=== PATIENT | female | born 1950 | race Caucasian/White ===

== ENCOUNTER 2020-07-17 12:37 | Emergency (ER) | payer OTHER ==
--- OUTSIDE RECORDS SUMMARY | 2020-07-17 12:42 | XMS REPORT | Clinical Summary ---
:1950 Author Organization [facility] Address [address] [place] [address] Care Team Providers Name Role Phone Dayday Botello MD Primary Care Provider [phone] Allergies No Known Allergies Medications Medication Sig Dispensed Refills Start Date End Date Status acetaminophen-codeine Take 1 tablet by 0 Active (TYLENOL WITH CODEINE mouth every 4 #3) 300-30 mg per (four) hours as tablet needed for moderate pain. DOCUSATE CALCIUM ORAL Take by mouth. 0 Active Lactobacillus Take by mouth. 0 A ctive acidophilus (PROBIOTIC ORAL) cyanocobalamin, vitamin Take by mouth. 0 Active B-12, (VITAMIN B-12 ORAL) polyethylene glycol Take by mouth. 0 Active 3350 (MIRALAX ORAL) Active Problems Problem Noted Date Diverticulitis 06/30/2018 Family History Medical History Relation Name Comments Kidney disease Brother Heart disease Father Hypertension Father Breast cancer Maternal Grandfather Cancer Mother Heart disease Mother Hypertension Mother Kidney disease Sister Relation Name Status Comments Brother Father Maternal Grandfather Mother Sister Social History Tobacco Use Types Packs/Day Years Used Date Former Smoker Cigarettes 0.5 15 Quit: 1997 Smokeless Tobacco: Never Used Alcohol Use Drinks/Week oz/Week Comments No Sex Assigned at Date Recorded Not on file Job Start Date Occupation Industry Not on file Not on file Not on file Travel History Travel Start Travel End No recent travel history available. 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
[2020-07-17] MEDS ORDERED: ONDANSETRON 4 MG/2 ML VIAL ONE ×2 (13:43→15:54)
[2020-07-17] MEDS ORDERED: FENTANYL CITR 100 MCG/2 ML ONE ×2 (13:43→14:29)
[2020-07-17] MEDS ORDERED: propofoL 1,000 MG/100 ML VIAL IV ONE (13:53)
--- NOTE | 2020-07-17 14:28 | RAD REPORT ---
EXAM DESCRIPTION: RAD - Shoulder Left 2 View - 07/17/2020 2:03 pm CLINICAL HISTORY: Pain;Deformity COMPARISON: No comparisons TECHNIQUE: Internal and external rotation views of the left shoulder were obtained. FINDINGS: Left humeral head is dislocated anterior and medial to the glenoid. This is a typical ante rior dislocation position. Greater tuberosity fracture fragment is identifiable. No gross fracture de formity of the bony glenoid. AC joint is unremarkable. No suspicious soft tissue finding. IMPRESSION: Anterior left humeral head dislocation with greater tuberosity fracture fragment.
--- NOTE | 2020-07-17 15:39 | RAD REPORT ---
EXAM DESCRIPTION: RAD - Shoulder 1 View - 07/17/2020 2:47 pm CLINICAL HISTORY: post reduction COMPARISON: Shoulder Left 2 View dated 07/17/2020 FINDINGS: Left humeral head has been reduced to anatomic position. No further displacement or distra ction of the greater tuberosity fracture appear IMPRESSION: Successful reduction of anterior dislocation.
[2020-07-17] MEDS ORDERED: MORPHINE 4 MG/ML SYR ONE ×2 (15:54→18:24)
[2020-07-17] MEDS ORDERED: HYDROCODONE/APAP 10/325 TAB ONE (15:54)
--- NOTE | 2020-07-17 16:39 | RAD REPORT ---
EXAM DESCRIPTION: CT - Shoulder Left Wo Con - 07/17/2020 4:08 pm CLINICAL HISTORY: post reduction COMPARISON: Shoulder 1 View dated 07/17/2020; Shoulder Left 2 View dated 07/17/2020 TECHNIQUE: Axial 3 millimeter thick images of the left shoulder were obtained. Sagittal and coronal reformatted images were generated and reviewed. The CT scan was performed using dose optimization techniques as appropriate to a performed exam incl uding one or more of the following: Automated exposure control, adjustment of the mA and/or kV accord ing to patient size (this includes techniques or standardized protocols for targeted exams where dose is matched to indication/reason for exam) and use of iterative reconstruction technique. FINDINGS: Clavicle is intact. No AC joint abnormality. No abnormality of the upper ribcage. Patient is status post reduction of an anterior dislocation. Humeral head is in anatomic position. There is no Bankart lesion of the bony glenoid. Fracture of the greater tuberosity is present. There are several small fracture fragments in addition to the main ob lique fracture plane. There is no distraction or angulation deformity. Patient has a minimal [place] hs deformity to the posterior margin of the proximal humerus. No paraspinal hematoma or mass. No pathologic bone component seen. IMPRESSION: Approximately 2.5 centimeter size greater tuberosity fracture with no distraction or ang ulation deformity. Humeral head is in anatomic position. There is no Bankart lesion of the glenoid.
--- NOTE | 2020-07-17 16:43 | RAD REPORT ---
EXAM DESCRIPTION: CT - CTHCSPWOC - 07/17/2020 4:08 pm CLINICAL HISTORY: Fall, head and neck injury COMPARISON: No comparisons TECHNIQUE: Axial 5 mm thick images of the head were obtained. Axial 2 mm thick images of the cervic al spine were obtained with sagittal and coronal reconstruction images generated and reviewed. All CT scans are performed using dose optimization technique as appropriate and may include automated exposure control or mA/KV adjustment according to patient size. FINDINGS: No intracranial hemorrhage, mass, edema or acute intracranial finding. No suspicion for ac jason infarction. No extra-axial fluid collections. No mastoid air cell or paranasal sinus acute findin g. No globe or orbit abnormality seen. No significant atrophy or chronic ischemic change. Cervical bodies are normal in height. There is reversal of the usual cervical lordosis with the apex at C5-6. C5-6 and C6-7 disc spaces are narrowed. No other disc space narrowing. No fracture or acute bony abnormality. Facet joint degenerative changes are present. There is right bony foraminal encroac hment at C3-4 and C4-5. Mild left and moderate right bilateral foraminal encroachment changes at C5-6 . Central canal detail is inherently limited. No paraspinal mass or hematoma. IMPRESSION: Negative CT head examination for acute or significant finding. Negative CT cervical spine examination for fracture or acute finding. Cervical spondylosis changes primarily at C5-6 and C6-7. Central canal detail is inherently limited.
--- NOTE | 2020-07-17 17:03 | RAD REPORT ---
EXAM DESCRIPTION: RAD - Hand Right 2 View - 07/17/2020 4:18 pm CLINICAL HISTORY: PAIN COMPARISON: No comparisons FINDINGS: No fracture is identified. There is no dislocation or periosteal reaction noted. Radiocar pal joint space narrowing is present. Minimal degenerative change at the trapezial first metacarpal a rticulation. Slight joint space narrowing seen at the first and fourth MCP joints. There is joint spa ce narrowing throughout all of the IP joints. There is spurring and questionable erosive change along the ulnar side of the second PIP joint soft tissues are swollen in this region. There is soft tissue swelling in the proximal third and fourth digits as well. No air or foreign body in the soft tissues. IMPRESSION: No fracture or acute bone process identifiable. Degenerative changes are present throughout the IP joints of the hand. Gout cannot be excluded given the questionable erosive changes along the ulna side of the second proximal phalanx head.
[2020-07-17] MEDS ORDERED: NITROGLYCERIN 0.4 MG/TAB SL ONE (17:09)
--- NOTE | 2020-07-17 17:54 | EDPHYS ---
Physician Documentation [facility] Name: Charlotte Barrientos Age: 70 yrs Sex: Female : 1950 Arrival Date: 07/17/2020 Time: 12:40 Bed 14 Private MD: ED Physician Kaden Peralta HPI: 07/18 13:55 This 70 yrs old Female presents to ER via EMS with complaints of Fall Injury. kdr 13:55 Details of fall: The patient fell from an upright position. Onset: The symptoms/episode kdr began/occurred suddenly, just prior to arrival. Associated injuries: The patient sustained Left shoulder pain dislocation. Severity of symptoms: At their worst the symptoms were incapacitating, in the emergency department the symptoms are unchanged. The patient has not experienced similar symptoms in the past. The patient has not recently seen a physician. Historical: - Allergies: 07/17 12:45 No Known Allergies; iw - Home Meds: 12:45 gabapentin oral oral [Active]; iw - PMHx: 12:45 neuropathy; iw - Immunization history:: Adult Immunizations up to date. - Immunization history: Last tetanus immunization: < 10 years ago. - Social history:: Smoking status: Patient denies any tobacco usage or history of. ROS: 07/18 13:55 Constitutional: Negative for fever, chills, and weight loss, Eyes: Negative for injury, kdr pain, redness, and discharge, ENT: Negative for injury, pain, and discharge, Neck: Negative for injury, pain, and swelling, Cardiovascular: Negative for chest pain, palpitations, and edema, Respiratory: Negative for shortness of breath, cough, wheezing, and pleuritic chest pain, Abdomen/GI: Negative for abdominal pain, nausea, vomiting, diarrhea, and constipation, Back: Negative for injury and pain, : Negative for injury, bleeding, discharge, and swelling, Skin: Negative for injury, rash, and discoloration, Psych: Negative for depression, anxiety, suicide ideation, homicidal ideation, and hallucinations, Allergy/Immunology: Negative for hives, rash, and allergies, Endocrine: Negative for neck swelling, polydipsia, polyuria, polyphagia, and marked weight changes, Hematologic/Lymphatic: Negative for swollen nodes, abnormal bleeding, and unusual bruising. MS/extremity: Positive for injury or acute deformity, decreased range of motion, pain, of the left arm. Neuro: Positive for numbness, weakness, of the left antecubital area, dorsal aspect of left forearm, left wrist, left hand, left elbow and palmar aspect of left forearm, The patient had no sensation or movement of the left upper extremity below the mid humerous. Exam: 07:44 ECG was reviewed by the Attending Physician. kdr 13:55 Constitutional: This is a well developed, well nourished patient who is awake, alert, kdr and in no acute distress. Head/Face: Normocephalic, atraumatic. Eyes: Pupils equal round and reactive to light, extra-ocular motions intact. Lids and lashes normal. Conjunctiva and sclera are non-icteric and not injected. Cornea within normal limits. Periorbital areas with no swelling, redness, or edema. Neck: Trachea midline, no thyromegaly or masses palpated, and no cervical lymphadenopathy. Supple, full range of motion without nuchal rigidity, or vertebral point tenderness. No Meningismus. Chest/axilla: Normal chest wall appearance and motion. Nontender with no deformity. No lesions are appreciated. Cardiovascular: Regular rate and rhythm with a normal S1 and S2. No gallops, murmurs, or rubs. Normal PMI, no JVD. No pulse deficits. Respiratory: Lungs have equal breath sounds bilaterally, clear to auscultation and percussion. No rales, rhonchi or wheezes noted. No increased work of breathing, no retractions or nasal flaring. Abdomen/GI: Soft, non-tender, with normal bowel sounds. No distension or tympany. No guarding or rebound. No evidence of tenderness throughout. Back: No spinal tenderness. No costovertebral tenderness. Full range of motion. Skin: Warm, dry with normal turgor. Normal color with no rashes, no lesions, and no evidence of cellulitis. Psych: Awake, alert, with orientation to person, place and time. Behavior, mood, and affect are within normal limits. 13:55 Neuro: Orientation: Motor: Strength is 1/5 in the left antecubital area, dorsal aspect of left forearm, left wrist, left hand, left elbow and palmar aspect of left forearm, Sensation: numbness, that is severe, of the left antecubital area, dorsal aspect of left forearm, left wrist, left hand, left elbow and palmar aspect of left forearm. Vital Signs: 07/17 12:44 BP 192 / 75; Pulse 90; Resp 16; Temp 98.1; Pulse Ox 100% on R/A; iw 13:30 BP 88 / 80; Pulse 85; Resp 19; Pulse Ox 96% on R/A; Pain 9/10; hb 14:30 BP 194 / 77; Pulse 86; Resp 20; Pulse Ox 99% on 2 lpm NC; hb 15:30 BP 128 / 78; Pulse 80; Resp 15; Pulse Ox 97% on 2 lpm NC; Pain 8/10; hb 16:30 BP 128 / 78; Pulse 82; Resp 15; Pulse Ox 97% on 2 lpm NC; Pain 6/10; hb 17:30 BP 136 / 75; Pulse 79; Resp 16; Pulse Ox 98% on R/A; Pain 8/10; hb 18:30 BP 132 / 72; Pulse 75; Resp 16; Pulse Ox 99% on R/A; hb 19:45 BP 157 / 65; Pulse 88; Resp 18; Pulse Ox 98% on R/A; wh 21:00 BP 156 / 69; Pulse 90; Resp 18; Pulse Ox 95% on R/A; Pain 3/10; wh [place] Coma Score: 12:45 Eye Response: spontaneous(4). Verbal Response: oriented(5). Motor Response: obeys iw commands(6). Total: 15. Trauma Score (Adult): 12:47 Eye Response: spontaneous(1); Verbal Response: oriented(1); Motor Response: obeys iw commands(2); Systolic BP: > 89 mm Hg(4); Respiratory Rate: 10 to 29 per min(4); [place] Score: 15; Trauma Score: 12 13:30 Eye Response: spontaneous(1); Verbal Response: oriented(1); Motor Response: obeys hb commands(2); Systolic BP: > 89 mm Hg(4); Respiratory Rate: 10 to 29 per min(4); [place] Score: 15; Trauma Score: 12 14:30 Eye Response: to pain(0); Verbal Response: inappropriate words(0); Motor Response: hb withdraws from pain(1); Systolic BP: > 89 mm Hg(4); Respiratory Rate: 10 to 29 per min(4); [place] Score: 9; Trauma Score: 9 15:30 Eye Response: spontaneous(1); Verbal Response: oriented(1); Motor Response: obeys hb commands(2); Systolic BP: > 89 mm Hg(4); Respiratory Rate: 10 to 29 per min(4); [place] Score: 15; Trauma Score: 12 16:30 Eye Response: spontaneous(1); Verbal Response: oriented(1); Motor Response: obeys hb commands(2); Systolic BP: > 89 mm Hg(4); Respiratory Rate: 10 to 29 per min(4); [place] Score: 15; Trauma Score: 12 17:30 Eye Response: spontaneous(1); Verbal Response: oriented(1); Motor Response: obeys hb commands(2); Systolic BP: > 89 mm Hg(4); Respiratory Rate: 10 to 29 per min(4); [place] Score: 15; Trauma Score: 12 18:30 Eye Response: spontaneous(1); Verbal Response: oriented(1); Motor Response: obeys hb commands(2); Systolic BP: > 89 mm Hg(4); Respiratory Rate: 10 to 29 per min(4); [place] Score: 15; Trauma Score: 12 Procedures: 07/18 15:13 Reduction: of the left shoulder, using traction, manipulation, Immobilized with sling, kdr Patient tolerated well. Post reduction film - reveals normal alignment. Moderate sedation: Pre-procedure assessment: the patient has been NPO 4 hour(s) prior to arrival, Monitoring during procedure: campus monitor, continuous pulse oximetry, nurse at bedside at all times, Medications employed: Brevital, 250 mg(s), Fentanyl, Post-procedure assessment: the patient is not sedated, Respiratory status: even and unlabored, a reversal agent was not used. MDM: 07/17 17:53 Patient medically screened. kdr 07/18 13:55 Data reviewed: vital signs, nurses notes, lab test result(s), radiologic studies. kdr Counseling: I had a detailed discussion with the patient and/or guardian regarding: the historical points, exam findings, and any diagnostic results supporting the discharge/admit diagnosis, lab results, radiology results, the need to transfer to another facility. Physician consultation: Adriano Daniel MD and will see patient in office, States nothing to be done about neuro deficit at this time. Would need to see neurology in follow-up. next week. Physician consultation: Jose Shane MD after a discussion of the case, a recommendation for transfer for higher level of care is made, discharges patient from the emergency department, After further discussion with Dr. Daniel regarding the neuro deficit, he felt that a stat neuro consult would be advisable in the ED to determine current state of deficit and need for follow-up. I then contacted Dr. Shane who suggested that the differential diagnosis at this time was cervical root disruption versus radial plexus injury. HE felt that emergent MRI would be advisable. MRI was not then available at this facility and so initiated a trasnport. 07/17 13:05 Order name: Shoulder Left (2 View) XRAY; Complete Time: 17:35 iw 07/17 14:45 Order name: Shoulder 1 View; Complete Time: 17:35 EDMS 07/17 15:09 Order name: Shoulder Left Wo Con; Complete Time: 17:35 EDMS 07/17 16:00 Order name: Head C Spine Mpr Wo Con; Complete Time: 17:35 EDMS 07/17 16:09 Order name: Hand Right 2 View; Complete Time: 17:35 EDMS EC:44 Rate is 87 beats/min. Rhythm is regular, Normal Sinus Rhythm with No ectopy. QRS [place] kdr is Normal. IN interval is normal. QRS interval is normal. QT interval is normal. Clinical impression: NSR w/ Non-specific ST/T Changes. Administered Medications: 07/17 13:35 Drug: fentaNYL (PF) 50 mcg Route: IVP; Site: right hand; hb 14:00 Follow up: Response: No adverse reaction hb 13:36 Drug: Zofran (Ondansetron) 4 mg Route: IVP; Site: right wrist; hb 14:00 Follow up: Response: No adverse reaction hb 14:00 Drug: Propofol 100 mg {Note: Administered by Dr. Peralta.} Route: IVP; Site: right hand;hb 14:40 Follow up: Response: No adverse reaction hb 14:05 Drug: Propofol 20 mg {Note: Administered by Dr. Peralta.} Route: IVP; Site: right hand; hb 14:09 Drug: Propofol 20 mg {Note: Administered by Dr. Peralta.} Route: IVP; Site: right hand; hb 14:12 Drug: Propofol 20 mg {Note: Administered by Dr. Peralta.} Route: IVP; Site: right hand; hb 14:40 Follow up: Response: No adverse reaction hb 14:17 Drug: Propofol 30 mg {Note: Administered by Dr. Peralta.} Route: IVP; Site: right hand; hb 14:40 Follow up: Response: No adverse reaction hb 14:19 Drug: fentaNYL (PF) 50 mcg Route: IVP; Site: right hand; hb 14:40 Follow up: Response: No adverse reaction hb 14:22 Drug: Propofol 25 mg Route: IVP; Site: right hand; hb 14:40 Follow up: Response: No adverse reaction hb 15:54 Drug: Concepcion 10 mg-325 mg 1 tabs Route: PO; hb 21:09 Follow up: Response: No adverse reaction; RASS: Alert and Calm (0) 15:54 Drug: morphine 4 mg Route: IVP; Site: right hand; hb 21:09 Follow up: Response: No adverse reaction; RASS: Alert and Calm (0) 18:24 Drug: Concepcion (7.5 mg-325 mg) 1 tabs Route: PO; hb 21:08 Follow up: Response: No adverse reaction; Pain is decreased; RASS: Alert and Calm (0) 18:24 Drug: morphine 4 mg Route: IVP; Site: right hand; hb 21:08 Follow up: Response: No adverse reaction; Pain is decreased; RASS: Alert and Calm (0) Disposition: 07/17/20 20:[address] [facility]. Diagnosis are Neuropraxia- left arm, Brachial plexus disorders - s/p dislocation and reduction of anterior dislocation. - Reason for transfer: Higher level of care. - Accepting physician is Dr. Coleman. - Condition is Stable. - Problem is an acute exacerbation. - Symptoms are unchanged. Signatures: Dispatcher [employer] EDMS Kaden Peralta MD MD kdr Waters, Shelly, FNP-C MANAGER LABOR DELIVERY-Jenna Mendoza RN RN Thais Parr RN RN Nell Remy Corrections: (The following items were deleted from the chart) 14:45 14:34 Shoulder Left 2 View+RAD.RAD.BRZ ordered. EDMS EDMS 15:59 15:26 Soft Tissue Neck Wo Contr ordered. [facility] EDID 15:59 15:43 Hand Right Wo Con ordered. [facility] 16:00 15:26 Head C Spine Cap Wo Con ordered. [facility] 17:54 17:53 07/17/2020 17:53 Discharged to Home. Impression: Neuropraxia - Left arm. kdr Condition is Stable. Forms are Medication Reconciliation Form, Thank You Letter, Antibiotic Education, Prescription Opioid Use. Follow up: Private Physician; When: 2 - 3 days; Reason: If symptoms return, Further diagnostic work-up, Recheck today's complaints, Continuance of care, Re-evaluation by your physician. Problem is new. Symptoms have improved. kdr 20:30 17:54 07/17/2020 17:53 Discharged to Home. Impression: Neuropraxia - Left arm; Other snw dislocation of left shoulder joint; Nondisplaced fracture of greater tuberosity of left humerus; Sprain of unspecified part of right wrist and hand; Superficial injury of head. Condition is Stable. Forms are Medication Reconciliation Form, Thank You Letter, Antibiotic Education, Prescription Opioid Use. Follow up: Private Physician; When: 2 - 3 days; Reason: If symptoms return, Further diagnostic work-up, Recheck today's complaints, Continuance of care, Re-evaluation by your physician. Problem is new. Symptoms have improved. kdr 21:34 20:31 07/17/2020 20:[address] [facility]. wh Diagnosis is Neuropraxia- left arm; Brachial plexus disorders - s/p dislocation and reduction of anterior dislocation. Reason for transfer: Higher level of care. Accepting physician is Dr. Coleman. Condition is Stable. Problem is an acute exacerbation. Symptoms are unchanged. snw
--- NOTE | 2020-07-17 17:54 | ER ---
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 IV pain meds , fluids on board, pt A\T\OX3, EMS reports [address] depression, gave 324 ASA. Care prior to arrival: IV initiated. 20 GA, in the right wrist. 12:41 Acuity: SHIRA 3 iw 12:41 Method Of Arrival: EMS: [facility] iw 12:44 Mechanism of Injury: Fall from standing position. Trauma event details: Injury occurred iw in the [facility], Injury occurred: in a public building. Injury occurred: July 17, 2020. 12:46 Coronavirus screen: At this time, the client does not indicate any symptoms associated iw with coronavirus-19. Ebola Screen: Patient negative for fever greater than or equal to 101.5 degrees Fahrenheit, and additional compatible Ebola Virus Disease symptoms Patient denies exposure to infectious person. Patient denies travel to an Ebola-affected area in the 21 days before illness onset. No symptoms or risks identified at this time. Initial Sepsis Screen: Does the patient meet any 2 criteria? No. Patient's initial sepsis screen is negative. Does the patient have a suspected source of infection? No. Patient's initial sepsis screen is negative. Risk Assessment: Do you want to hurt yourself or someone else? Patient reports no desire to harm self or others. Onset of symptoms was July 17, 2020. Care prior to arrival: Medication(s) given: ASA, 81 mg, x 4, zofran 4 mg, fentanyl 75 mcg. Trauma Activation: Not Applicable Physician: ED Physician; Name: ; Notified At: ; Arrived At: Physician: General Surgeon; Name: ; Notified At: ; Arrived At: Physician: Radiology; Name: ; Notified At: ; Arrived At: Physician: Respiratory; Name: ; Notified At: ; Arrived At: Physician: Lab; Name: ; Notified At: ; Arrived At: Historical: - Allergies: 12:45 No Known Allergies; iw - Home Meds: 12:45 gabapentin oral oral [Active]; iw - PMHx: 12:45 neuropathy; iw - Immunization history:: Adult Immunizations up to date. - Immunization history: Last tetanus immunization: < 10 years ago. - Social history:: Smoking status: Patient denies any tobacco usage or history of. Screenin:47 Abuse screen: Denies threats or abuse. Denies injuries from another. Tuberculosis iw screening: No symptoms or risk factors identified. 13:05 Nutritional screening: No deficits noted. Fall Risk Total Rodríguez Fall Scale indicates hb High Risk Score (45 or more points). Fall prevention measures have been instituted. Side Rails Up X 2 Frequent Obs/Assessments Occuring As available patient and family educated on Fall Prevention Program and Strategies. Primary Survey: 12:46 NO uncontrolled hemorrhage observed. A: The patient is alert. Airway: patent. iw Breathing/Chest: Respiratory pattern: regular, Respiratory effort: spontaneous. Circulation: Pulses: palpable right radial artery and left radial artery. Disability Alert. Exposure/Environment: All clothing and personal items were removed. Forensic evidence collection is not deemed to be indicated at this time. Items placed in patient belonging bag. 13:30 Reassessment Airway Airway Patent Oxygen No O2 Breathing/Chest Respiratory pattern hb Regular Breath sounds Clear Chest inspection Symmetrical Asymmetrical Circulation Pulses Palpable Color [place] Temperature Warm Dry Disability Alert. 14:30 Reassessment Airway Airway Patent Oxygen Nasal cannula Breathing/Chest Respiratory hb pattern Regular Breath sounds Clear Chest inspection Symmetrical Asymmetrical Circulation Pulses Palpable Color [place] Temperature Warm Dry Disability Alert. 15:30 Reassessment Airway Airway Patent Oxygen Nasal cannula Breathing/Chest Respiratory hb pattern Regular Chest inspection Symmetrical Asymmetrical Circulation Pulses Palpable Color [place] Temperature Warm Dry Disability Alert. 16:30 Reassessment Airway Airway Patent Oxygen Nasal cannula Breathing/Chest Respiratory hb pattern Regular Chest inspection Symmetrical Asymmetrical Circulation Pulses Palpable Color [place] Temperature Warm Dry Disability Alert. 17:30 Reassessment Airway Airway Patent Oxygen No O2 Breathing/Chest Respiratory pattern hb Regular Breath sounds Clear Chest inspection Symmetrical Asymmetrical Circulation Color [place] Temperature Warm Dry Disability Alert. 18:30 Reassessment Airway Airway Patent Oxygen No O2 Breathing/Chest Respiratory pattern hb Regular Respiratory effort Spontaneous Chest inspection Symmetrical Asymmetrical Circulation Pulses Palpable Color [place] Temperature Warm Dry Disability Alert. Secondary Survey: 14:30 HEENT: Eyes: Other left upper eyelid swelling and bruising noted. hb 14:30 Gastrointestinal: No deficits noted. : No signs and/or symptoms were reported hb regarding the genitourinary system. Musculoskeletal: Range of motion: limited in left shoulder, bruising noted to right ring finger. Assessment: 13:00 General: Appears in no apparent distress. uncomfortable, Behavior is cooperative. Pain: hb Pain currently is 9 out of 10 on a pain scale. Neuro: Level of Consciousness is awake, alert, obeys commands, Oriented to person, place, time, situation. EENT: No signs and/or symptoms were reported regarding the EENT system. Cardiovascular: Capillary refill < 3 seconds Patient's skin is warm and dry. Pulses are 3+ in left radial artery. Respiratory: Airway is patent Respiratory effort is even, unlabored, Respiratory pattern is regular, symmetrical, Breath sounds are clear bilaterally. GI: No signs and/or symptoms were reported involving the gastrointestinal system. : No signs and/or symptoms were reported regarding the genitourinary system. Derm: Skin is pink, warm \T\ dry. Musculoskeletal: Reports limited ROM in left shoulder, pain in left shoulder that radiates to left elbow, mild bruising and moderate swelling noted to left upper eyelid, bruising noted to bryant aspect of right ring finger. 13:12 Reassessment: Brother in Law Shayne Barrientos [phone]. hb 13:30 Reassessment: Patient appears in no apparent distress at this time. Patient and/or hb family updated on plan of care and expected duration. Pain level reassessed. Patient is alert, oriented x 3, equal unlabored respirations, skin warm/dry/pink. 14:00 Reassessment: Dr Peralta at bedside for conscious sedation, see paper chart for conscious sedation flow sheet. 15:00 Reassessment: Patient appears in no apparent distress at this time. Patient and/or hb family updated on plan of care and expected duration. Pain level reassessed. Patient is alert, oriented x 3, equal unlabored respirations, skin warm/dry/pink. 15:30 Reassessment: Patient appears in no apparent distress at this time. Patient and/or hb family updated on plan of care and expected duration. Pain level reassessed. Patient is alert, oriented x 3, equal unlabored respirations, skin warm/dry/pink. 15:54 Reassessment: Pt to CT via stretcher. hb 16:29 Reassessment: Pt returned from CT. hb 16:30 Reassessment: Patient appears in no apparent distress at this time. Patient and/or hb family updated on plan of care and expected duration. Pain level reassessed. Patient is alert, oriented x 3, equal unlabored respirations, skin warm/dry/pink. 17:30 Reassessment: Patient appears in no apparent distress at this time. Patient and/or hb family updated on plan of care and expected duration. Pain level reassessed. Patient is alert, oriented x 3, equal unlabored respirations, skin warm/dry/pink. 18:30 Reassessment: Dr. Peralta at bedside to discuss possible transfer to higher level of hb care. NAD. VSS. 19:15 General: Appears in no apparent distress. uncomfortable, Behavior is calm, cooperative, wh appropriate for age. Neuro: Level of Consciousness is awake, alert, obeys commands, Oriented to person, place, time, situation, Appropriate for age Reports numbness in left forearm Pt states unable to move left forearm. Cardiovascular: Capillary refill < 3 seconds Patient's skin is warm and dry. Pulses are all present. Respiratory: Airway is patent Respiratory effort is even, unlabored, Respiratory pattern is regular, symmetrical. GI: No signs and/or symptoms were reported involving the gastrointestinal system. : No signs and/or symptoms were reported regarding the genitourinary system. EENT: No signs and/or symptoms were reported regarding the EENT system. Derm: Skin is intact, is healthy with good turgor, Skin is pink, warm \T\ dry. normal. Musculoskeletal: Range of motion: limited in left forearm Reports. 19:23 Reassessment: Purse, wallet, and flip flops sent home with Wedding ring placed hb in inside pocket of wallet by patient. Belongings walked out to . 19:45 Reassessment: Pt already for discharge, MD at bedside plan now to transfer to [facility] for higher level of care. 20:45 Reassessment: Patient and/or family updated on plan of care and expected duration. Pain wh level reassessed. Patient is alert, oriented x 3, equal unlabored respirations, skin warm/dry/pink. Report given to Julia Pavon RN. Vital Signs: 12:44 BP 192 / 75; Pulse 90; Resp 16; Temp 98.1; Pulse Ox 100% on R/A; iw 13:30 BP 88 / 80; Pulse 85; Resp 19; Pulse Ox 96% on R/A; Pain 9/10; hb 14:30 BP 194 / 77; Pulse 86; Resp 20; Pulse Ox 99% on 2 lpm NC; hb 15:30 BP 128 / 78; Pulse 80; Resp 15; Pulse Ox 97% on 2 lpm NC; Pain 8/10; hb 16:30 BP 128 / 78; Pulse 82; Resp 15; Pulse Ox 97% on 2 lpm NC; Pain 6/10; hb 17:30 BP 136 / 75; Pulse 79; Resp 16; Pulse Ox 98% on R/A; Pain 8/10; hb 18:30 BP 132 / 72; Pulse 75; Resp 16; Pulse Ox 99% on R/A; hb 19:45 BP 157 / 65; Pulse 88; Resp 18; Pulse Ox 98% on R/A; wh 21:00 BP 156 / 69; Pulse 90; Resp 18; Pulse Ox 95% on R/A; Pain 3/10; wh Jeanette Coma Score: 12:45 Eye Response: spontaneous(4). Verbal Response: oriented(5). Motor Response: obeys iw commands(6). Total: 15. Trauma Score (Adult): 12:47 Eye Response: spontaneous(1); Verbal Response: oriented(1); Motor Response: obeys iw commands(2); Systolic BP: > 89 mm Hg(4); Respiratory Rate: 10 to 29 per min(4); Jeanette Score: 15; Trauma Score: 12 13:30 Eye Response: spontaneous(1); Verbal Response: oriented(1); Motor Response: obeys hb commands(2); Systolic BP: > 89 mm Hg(4); Respiratory Rate: 10 to 29 per min(4); Jeanette Score: 15; Trauma Score: 12 14:30 Eye Response: to pain(0); Verbal Response: inappropriate words(0); Motor Response: hb withdraws from pain(1); Systolic BP: > 89 mm Hg(4); Respiratory Rate: 10 to 29 per min(4); Jeanette Score: 9; Trauma Score: 9 15:30 Eye Response: spontaneous(1); Verbal Response: oriented(1); Motor Response: obeys hb commands(2); Systolic BP: > 89 mm Hg(4); Respiratory Rate: 10 to 29 per min(4); Jeanette Score: 15; Trauma Score: 12 16:30 Eye Response: spontaneous(1); Verbal Response: oriented(1); Motor Response: obeys hb commands(2); Systolic BP: > 89 mm Hg(4); Respiratory Rate: 10 to 29 per min(4); Jeanette Score: 15; Trauma Score: 12 17:30 Eye Response: spontaneous(1); Verbal Response: oriented(1); Motor Response: obeys hb commands(2); Systolic BP: > 89 mm Hg(4); Respiratory Rate: 10 to 29 per min(4); K[place]al Score: 15; Trauma Score: 12 18:30 Eye Response: spontaneous(1); Verbal Response: oriented(1); Motor Response: obeys hb commands(2); Systolic BP: > 89 mm Hg(4); Respiratory Rate: 10 to 29 per min(4); Kensal Score: 15; Trauma Score: 12 ED Course: 12:40 Patient arrived in ED. iw 12:43 Triage completed. iw 12:46 Arm band placed on. iw 12:47 Patient has correct armband on for positive identification. Bed in low position. iw 12:47 Maintain EMS IV. Dressing intact. Good blood return noted. Site clean \T\ dry. Gauge \T\ iw site: 20 right wrist. 13:08 Thais Parr RN is Primary Nurse. hb 13:14 Kaden Peralta MD is Attending Physician. kdr 13:40 Shoulder Left (2 View) XRAY In Process Unspecified. EDMS 13:50 Consent for conscious sedation explained by staff, signed by patient. iw 14:48 Shoulder 1 View In Process Unspecified. EDMS 16:08 Shoulder Left Wo Con In Process Unspecified. EDMS 16:08 Head C Spine Mpr Wo Con In Process Unspecified. EDMS 16:18 Hand Right 2 View In Process Unspecified. EDMS 16:38 Oxygen administration via nasal cannula \T\ 2L/min. Thermoregulation: warm blanket given hb to patient. 18:45 Gibson Escalante initiated a transfer with Laura Ramirez RN from [facility]. mw2 19:[address] Coleman the hospitalist radiation protection technician for [facility] with Dr. Peralta mw2 for patient transfer consultation. 19:25 administrative approval given by Laura Ramirez RN/ patient has been accepted to [facility] mw2 [facility] bed 1614/ Dr. Coleman has accepted the patient in transfer/ report to be called to [phone]. 21:00 IV discontinued, intact, bleeding controlled, No redness/swelling at site. Iv wh infiltrated. 21:29 No provider procedures requiring assistance completed. wh Administered Medications: 13:35 Drug: fentaNYL (PF) 50 mcg Route: IVP; Site: right hand; hb 14:00 Follow up: Response: No adverse reaction hb 13:36 Drug: Zofran (Ondansetron) 4 mg Route: IVP; Site: right wrist; hb 14:00 Follow up: Response: No adverse reaction hb 14:00 Drug: Propofol 100 mg {Note: Administered by Dr. Peralta.} Route: IVP; Site: right hand;hb 14:40 Follow up: Response: No adverse reaction hb 14:05 Drug: Propofol 20 mg {Note: Administered by Dr. Peralta.} Route: IVP; Site: right hand; hb 14:09 Drug: Propofol 20 mg {Note: Administered by Dr. Peralta.} Route: IVP; Site: right hand; hb 14:12 Drug: Propofol 20 mg {Note: Administered by Dr. Peralta.} Route: IVP; Site: right hand; hb 14:40 Follow up: Response: No adverse reaction hb 14:17 Drug: Propofol 30 mg {Note: Administered by Dr. Peralta.} Route: IVP; Site: right hand; hb 14:40 Follow up: Response: No adverse reaction hb 14:19 Drug: fentaNYL (PF) 50 mcg Route: IVP; Site: right hand; hb 14:40 Follow up: Response: No adverse reaction hb 14:22 Drug: Propofol 25 mg Route: IVP; Site: right hand; hb 14:40 Follow up: Response: No adverse reaction hb 15:54 Drug: [place] 10 mg-325 mg 1 tabs Route: PO; hb 21:09 Follow up: Response: No adverse reaction; RASS: Alert and Calm (0) 15:54 Drug: morphine 4 mg Route: IVP; Site: right hand; hb 21:09 Follow up: Response: No adverse reaction; RASS: Alert and Calm (0) 18:24 Drug: [place] (7.5 mg-325 mg) 1 tabs Route: PO; hb 21:08 Follow up: Response: No adverse reaction; Pain is decreased; RASS: Alert and Calm (0) 18:24 Drug: morphine 4 mg Route: IVP; Site: right hand; hb 21:08 Follow up: Response: No adverse reaction; Pain is decreased; RASS: Alert and Calm (0) Intake: 16:30 PO: 0ml; Total: 0ml. hb Outcome: 17:53 Discharge ordered by . kdr 20:31 ER care complete, transfer ordered by MD. snw 21:33 Transferred by ground EMS Transfer form completed. X-rays sent w/ patient. Note: Report given to [facility] 21:33 Condition: stable 21:33 Instructed on the need for transfer. 21:33 Patient's length of stay in the Emergency Department was greater than 2 hours. Pt wh transferred for higher level of carePatient's length of stay extended due to 21:34 Patient left the ED. Signatures: Dispatcher [employer] EDMS Kaden Peralta MD MD kdr Waters, Shelly, FREEZER PERSON-C FREEZER PERSON-Csnw Jenna Hodgson, RIK JOLLY Thais Parr RN RN [facility] Corrections: (The following items were deleted from the chart) 21:08 21:00 BP 156 / 69; Pulse 90bpm; Resp 18bpm; Pulse Ox 93% RA; [facility]
[2020-07-17] MEDS ORDERED: HYDROCODONE/APAP 7.5/325 MG TAB ONE (18:23)
[2020-07-17 22:40] VITALS: TEMP 98.1
[2020-07-17 22:50] VITALS: BP 156/69; O2SAT 95
== END 2020-07-17 21:34 | disposition short-term general hospital (02) ==
LOC: ER 12:37
PROC: 0RSKXZZ Reposition Left Shoulder Joint, External Approach (ICD-10-PCS; principal; 2020-07-17)
DX: S43.005A Unspecified dislocation of left shoulder joint, initial encounter (principal); S44.92XA Injury of unspecified nerve at shoulder and upper arm level, left arm, initial encounter; G54.0 Brachial plexus disorders; W19.XXXA Unspecified fall, initial encounter; Y93.9 Activity, unspecified; Y92.9 Unspecified place or not applicable
CPT/HCPCS: 93005; 70450; 72125; 73200; 73020; 73120; 73030; 99285; 23655; J2704; J3010 ×2; J2405 ×2

== ENCOUNTER 2022-11-22 11:37 | Emergency (ER) | payer OTHER ==
--- OUTSIDE RECORDS SUMMARY | 2022-11-22 11:47 | XMS REPORT | Continuity of Care Document ---
:1950 Author Organization [facility] t Address [address] [place] [address] Care Team Providers Name Role Phone Dayday Botello MD Primary Care Physician [phone] LÁZARO CHAPMAN Attending Clinician Unavailable Matthew Trotter MD Attending Clinician MATTHEW TROTTER Attending Clinician Unavailable Stephan HUERTA, Nazario Jennings Attending Clinician López Mosqueda MD Attending Clinician LÁZARO CHAPMAN Admitting Clinician Unavailable Payers Payer Name Policy Type Policy Number Effective Date Expiration Date S hugo [employer]ET[employer] MEDICARE HMO [id number] 2019 POS PPO 00:00:00 CDC REVIEW [id number] 2020 00:00:00 Problems Condition Condition Condition Status Onset Resolution Last Treating Co mments Source Name Details Category Date Date Treatment Clinician Date Left arm [facility] [place] Left arm Left arm Disease [facility] [place] Greater Greater Disease Active [facility] tuberosity tuberosity 9-17 [facility] of [facility] hum[facility] 00:00: Me dical fracture fracture 00 Center Diverticul Diverticul Disease Active [facility] 00 l Allergies, Adverse Reactions, Alerts Allergy Allergy Status Severity Reaction(s) Onset Inactive Treating Comm ents Source Name Type Date Date Clinician NO KNOWN Allergy Active [facility] Family History Family Member Diagnosis Comments Start Date Stop Date Source Natural brother Kidney disease [facility] Natural father Heart disease [facility] Natural father Hypertension [facility] Maternal grandfather Breast cancer [facility] Natural mother Cancer [facility] Natural mother Heart disease [facility] mother Hypertension [facility] Natural sister Kidney disease [facility] Social History Social Habit Start Date Stop Date Quantity Comments Source Exposure to Not sure [facility] of SARS-CoV-2 (event) Medici ne History of tobacco Smoker [facility] of use Medicine Tobacco Comment 2020-09-03 2020-09-[address] [facility] llege of 00:00:00 00:00:00 smoking at the Medicine age of 19. I stopped smoking for 4 years. I started smoking again then quit Tobacco use and 2020-07-18 2020-07-[address] [facility] kes exposure 00:00:00 00:00:00 [facility] Alcohol intake 2018-08-01 2018-08-01 Current [facility] 00:00:00 00:00:00 non-drinker of Hospital alcohol (finding) Cigarettes smoked 2018-06-15 2018-06-15 [facility] current (pack per 00:00:00 00:00:00 Hospita l day) - Reported Cigarette 2018-06-15 2018-06-15 [facility] pack-years 00:00:00 00:00:00 Hospital Sex Ass[birth year] At [birth year] [facility] 00:00[facility] 00:[facility]:00 Hospital Smoking Status Start Date Stop Date Source Ex-smoker 2020-08-27 00:00:00 2020-08-27 00:00:00 [facility] Medications Ordered Filled Start Stop Current Ordering Indication Dosage Frequency Signature Comments Components Source Medication Medication Date Date Medication? Clinician (SIG) Name Name Polyethylen Yes Take by [facility] e Glycol 2-02 mouth. [place] POWD 10:33: of 14 Medicin e Polyethylen 2020-1 Yes Take by [facility] l[facility] e Glycol 0-27 mouth. [place] POWD 10:31: of 58 Medicin e duloxetine 2020-10 Yes Mode (CYMBALTA) 0-18 College 30 MG 00:00: of capsule 00 Medicin e duloxetine 2020-1 Yes [facility] (CYMBALTA) 0-18 College 30 MG 00:00: of capsule 00 Medicin e Polyethylen 2020-0 Yes Take by [facility] l[facility] e Glycol 9-23 mouth. [place] POWD 09:49: of 25 Medicin e Polyethylen 2020-0 Yes Take by [facility] l[facility] e Glycol 9-23 mouth. [place] POWD 09:49: of 25 Medicin e hydrochloro 2020-0 2020- No TAKE 1 [facility] thiazide 8-24 -23 TABLET BY Oz cabrera (HYDRODIURI 00:00: 00:00 MOUTH IN o f L) 25 MG 00 :00 THE Medicin tablet MORNING e hydrochloro 1-0 2020- No TAKE 1 [facility] thiazide 8-24 -23 TABLET BY Oz cabrera (HYDRODIURI 00:00: 00:00 MOUTH IN o f L) 25 MG 00 :00 THE Medicin tablet MORNING e Polyethylen 2020-0 Yes Take by [facility] l[facility] e Glycol 7-15 mouth. [place] POWD 08:57: of 53 Medicin e DULoxetine 2020-0 Yes Mode HCl 30 MG 5-27 [place] CSDR 00:00: of 00 Medicin e DULoxetine 2020-0 Yes Mode HCl 30 MG 5-27 [place] CSDR 00:00: of 00 Medicin e DULoxetine 2020-0 Yes Mode HCl 30 MG 5-27 [place] CSDR 00:00: of 00 Medicin e DULoxetine 2020-0 Yes Mode HCl 30 MG 5-27 [place] CSDR 00:00: of 00 Medicin e DULoxetine 2020-0 Yes [facility] HCl 30 MG 5-27 [place] CSDR 00:00: of 00 Medicin e meloxicam 2020-0 Yes Mode (MOBIC) 15 5-25 College MG tablet 00:00: of 00 Medicin e meloxicam 2020-0 Yes [facility] (MOBIC) 15 5-25 College MG tablet 00:00: of 00 Medicin e meloxicam 0 Yes Mode (MOBIC) 15 5-25 College MG tablet 00:00: of 00 Medicin e meloxicam 2020-0 2020- No [facility] (MOBIC) 15 5-25 10-27 College MG tablet 00:00: 00:00 of 00 :00 Medicin e Polyethylen 0 Yes Take by [facility] luna e Glycol 4-07 mouth. [place] POWD 15:14: of 30 Medicin e Rosuvastati 0 2020- No Take by Manish minayaor n Calcium 4-07 04-07 mouth. 1 Colle ge 40 MG CPSP 15:13: 00:00 Daily of 42 :00 Medicin e hydrochloro 0 2020- No 12.5mg Take 12.5 [facility] thiazide 4-07 04-07 mg by [place] (MICROZIDE) 15:13: 00:00 mouth of 12.5 MG 42 :00 daily. Medicin capsule e amlodipine 0 Yes TAKE 1/2 [facility] l[facility] (NORVASC) 3-21 TABLET BY Colle ge 10 MG 00:00: MOUTH of tablet 00 DAILY 60 Medicin e amlodipine 0 Yes TAKE 1/2 [facility] (NORVASC) 3-21 TABLET BY Colle ge 10 MG 00:00: MOUTH of tablet 00 DAILY 60 Medicin e amlodipine 2020-0 Yes TAKE 1/2 [facility] (NORVASC) 3-21 TABLET BY Colle ge 10 MG 00:00: MOUTH of tablet 00 DAILY 60 Medicin e amlodipine 2020-0 Yes TAKE 1/2 [facility] (NORVASC) 3-21 TABLET BY Colle ge 10 MG 00:00: MOUTH of tablet 00 DAILY 60 Medicin e amlodipine 2020-0 Yes TAKE 1/2 [facility] (NORVASC) 3-21 TABLET BY Colle ge 10 MG 00:00: MOUTH of tablet 00 DAILY 60 Medicin e amlodipine 2020-0 Yes TAKE 1/2 [facility] (NORVASC) 3-21 TABLET BY Colle ge 10 MG 00:00: MOUTH of tablet 00 DAILY 60 Medicin e Polyethylen 0 Yes Take by [facility] e Glycol 2-24 mouth. [place] POWD 17:16: of 10 Medicin e Rosuvastati 0 Yes Take by [facility] luna n Calcium 2-24 mouth. 1 Colleg e 40 MG CPSP 17:16: Daily of 10 Medicin e hydrochloro 0 Yes 12.5mg Take 12.5 [facility] thiazide 2-24 mg by College (MICROZIDE) 17:16: mouth of 12.5 MG 10 daily. Medicin capsule e hydrochloro Yes [facility] thiazide 2-10 [place] 12.5 MG 00:00: of TABS 00 Medicin e hydrochloro 0 Yes [facility] thiazide 2-10 [place] 12.5 MG 00:00: of TABS 00 Medicin e hydrochloro 0 Yes [facility] thiazide 2-10 [place] 12.5 MG 00:00: of TABS 00 Medicin e hydrochloro Yes [facility] thiazide 2-10 [place] 12.5 MG 00:00: of TABS 00 Medicin e hydrochloro 0 Yes [facility] thiazide 2-10 [place] 12.5 MG 00:00: of TABS 00 Medicin e hydrochloro Yes [facility] thiazide 2-10 [place] 12.5 MG 00:00: of TABS 00 Medicin e rosuvastati 0 2020- No [facility] (CRESTOR) 2-10 04-07 [place] 40 MG 00:00: 00:00 of tablet 00 :00 Medicin e rosuvastati 0 Yes TAKE 1 [facility] (CRESTOR) 2-09 TABLET BY Col lege 40 MG 00:00: MOUTH of tablet 00 EVERY DAY Medicin e rosuvastati 0 Yes TAKE 1 [facility] (CRESTOR) 2-09 TABLET BY Col lege 40 MG 00:00: MOUTH of tablet 00 EVERY DAY Medicin e rosuvastati 0 Yes TAKE 1 [facility] (CRESTOR) 2-09 TABLET BY Col lege 40 MG 00:00: MOUTH of tablet 00 EVERY DAY Medicin e rosuvastati 0 Yes TAKE 1 [facility] (CRESTOR) 2-09 TABLET BY Col lege 40 MG 00:00: MOUTH of tablet 00 EVERY DAY Medicin e rosuvastati 0 Yes TAKE 1 [facility] (CRESTOR) 2-09 TABLET BY Col lege 40 MG 00:00: MOUTH of tablet 00 EVERY DAY Medicin e rosuvastati Yes TAKE 1 [facility] (CRESTOR) 2-09 TABLET BY Col lege 40 MG 00:00: MOUTH of tablet 00 EVERY DAY Medicin e Polyethylen 2019-10 Yes Take by [facility] l[facility] e Glycol 2-21 mouth. [place] POWD 16:29: of 45 Medicin e amlodipine- 2019-10- No [facility] atorvastata 1-30 04-07 College tin 00:00: 00:00 of (CADUET) 00 :00 Medicin 5-10 MG per e tablet Polyethylen 2019-10 Yes Take by [facility] l[facility] e Glycol 1-16 mouth. [place] POWD 15:38: of 02 Medicin e tramadol 2019-10 Yes [id number] 1{tbl} Take 1 [facility] (ULTRAM) 50 1-16 Tablet by Col lege MG tablet 00:00: mouth 3 of 00 times Medicin daily as e needed for Pain. tramadol 2019-10 Yes [id number] 1{tbl} Take 1 Mode (ULTRAM) 50 1-16 Tablet by Col lege MG tablet 00:00: mouth 3 of 00 times Medicin daily as e needed for Pain. tramadol 2019-10 Yes [id number] 1{tbl} Take 1 [facility] (ULTRAM) 50 1-16 Tablet by Col lege MG tablet 00:00: mouth 3 of 00 times Medicin daily as e needed for Pain. tramadol 2019-10 Yes [id number] 1{tbl} Take 1 [facility] (ULTRAM) 50 1-16 Tablet by Col lege MG tablet 00:00: mouth 3 of 00 times Medicin daily as e needed for Pain. tramadol 2019-10- No [id number] 1{tbl} Take 1 [facility] (ULTRAM) 50 1-16 07-15 Tablet by Co llege MG tablet 00:00: 00:00 mouth 3 of 00 :00 times Medicin daily as e needed for Pain. gabapentin 2019-10- No [id number] 1200mg Take 2 [facility] (NEURONTIN) 1-16 02-15 Tablets by C ollege 600 MG 00:00: 05:59 mouth 3 of tablet 00 :00 times Medicin daily for e 90 days. gabapentin 2019-10- No [id number] 1200mg Take 2 Mode (NEURONTIN) 1-16 02-15 Tablets by Abena baumann 600 MG 00:00: 05:59 mouth 3 of tablet 00 :00 times Medicin daily for e 90 days. Polyethylen 2019- Yes Take by [facility] l[facility] e Glycol 1-04 mouth. College POWD 20:23: of 52 Medicin e CYANOCOBALA 2020-1 2020- No Take by [facility] MIN NA 1-04 11-04 mouth. College 20:23: 00:00 of 09 :00 Medicin e DOCUSATE 2020-1 2020- No Take by [facility] SODIUM OR 1- 11-04 mouth. College 20:23: 00:00 of 09 :00 Medicin e ACIDOPHILUS 2020- 2020- No Take by [facility] LACTOBACILL 1- 11-04 mouth. Colle ge US OR 20:23: 00:00 of 09 :00 Medicin e CYANOCOBALA 2020-1 Yes Take by [facility] luna MIN NA 0-28 mouth. [place] 15:11: of 43 Medicin e DOCUSATE 2020-1 Yes Take by Mode SODIUM OR 0-28 mouth. [place] 15:11: of 43 Medicin e ACIDOPHILUS 2019- Yes Take by [facility] LACTOBACILL 0-28 mouth. Colleg e US OR 15:11: of 43 Medicin e Polyethylen 2019-1 Yes Take by [facility] l[facility] e Glycol 0-28 mouth. [place] POWD 15:11: of 43 Medicin e Multiple 2019- Yes [facility] Vitamins-Mi 0-09 College nerals 00:00: of (MULTIVITAM 00 Medicin IN ADULTS e 50+) TABS Multiple 2019- Yes Mode Vitamins-Mi 0-09 College nerals 00:00: of (MULTIVITAM 00 Medicin IN ADULTS e 50+) TABS Multiple 2019-1 Yes Mode Vitamins-Mi 0-09 College nerals 00:00: of (MULTIVITAM 00 Medicin IN ADULTS e 50+) TABS Multiple 2020-1 Yes [facility] Vitamins-Mi 0-09 College nerals 00:00: of (MULTIVITAM 00 Medicin IN ADULTS e 50+) TABS Multiple 2019-1 Yes [facility] Vitamins-Mi 0-09 College nerals 00:00: of (MULTIVITAM 00 Medicin IN ADULTS e 50+) TABS BABY 2019-1 Yes Mode ASPIRIN OR 0-09 College 00:00: of 00 Medicin e BABY 2020-1 Yes Mode ASPIRIN OR 0-09 College 00:00: of 00 Medicin e Multiple 2020-1 Yes [facility] Vitamins-Mi 0-09 College nerals 00:00: of (MULTIVITAM 00 Medicin IN ADULTS e 50+) TABS BABY 2020-1 Yes [facility] ASPIRIN OR 0-09 College 00:00: of 00 Medicin e Multiple 2020-1 Yes Mode Vitamins-Mi 0-09 College nerals 00:00: of (MULTIVITAM 00 Medicin IN ADULTS e 50+) TABS BABY 2020-1 Yes [facility] ASPIRIN OR 0-09 College 00:00: of 00 Medicin e Multiple 2020-1 Yes [facility] Vitamins-Mi 0-09 College nerals 00:00: of (MULTIVITAM 00 Medicin IN ADULTS e 50+) TABS BABY 2020-1 Yes Mode ASPIRIN OR 0-09 College 00:00: of 00 Medicin e Multiple 2020-1 Yes [facility] Vitamins-Mi 0-09 College nerals 00:00: of (MULTIVITAM 00 Medicin IN ADULTS e 50+) TABS BABY 2020-1 Yes Mode ASPIRIN OR 0-09 College 00:00: of 00 Medicin e amlodipine 2020-1 Yes [facility] (NORVASC) 5 0-09 College MG tablet 00:00: of 00 Medicin e Multiple 2020-1 Yes [facility] Vitamins-Mi 0-09 College nerals 00:00: of (MULTIVITAM 00 Medicin IN ADULTS e 50+) TABS tramadol 2020-1 Yes [facility] (ULTRAM) 50 0-09 College MG tablet 00:00: of 00 Medicin e amlodipine 2020-1 Yes [facility] (NORVASC) 5 0-09 College MG tablet 00:00: of 00 Medicin e Multiple 2020-1 Yes Mode Vitamins-Mi 0-09 College nerals 00:00: of (MULTIVITAM 00 Medicin IN ADULTS e 50+) TABS tramadol 2020-1 Yes Mode (ULTRAM) 50 0-09 College MG tablet 00:00: of 00 Medicin e amlodipine 2020-1 2020- No [facility] (NORVASC) 5 0-09 11-16 College MG tablet 00:00: 00:00 of 00 :00 Medicin e tramadol 2020-1 2020- No [facility] (ULTRAM) 50 0-09 11-16 College MG tablet 00:00: 00:00 of 00 :00 Medicin e losartan 2020-0 Yes [facility] (COZAAR) 25 9-23 College MG tablet 00:00: of 00 Medicin e losartan 2020-0 Yes [facility] (COZAAR) 25 9-23 College MG tablet 00:00: of 00 Medicin e losartan 2020-0 Yes [facility] (KSZAIRMA) 25 9-23 College MG tablet 00:00: of 00 Medicin e losartan 2020-0 Yes [facility] (KSZAAR) 25 9-23 College MG tablet 00:00: of 00 Medicin e gabapentin 2020-0 Yes 600mg Take 600 [facility] (NEURONTIN) 9-23 mg by [place] 600 MG 00:00: mouth. of tablet 00 Medicin e gabapentin 2020-0 Yes 600mg Take 600 [facility] (NEURONTIN) 9-23 mg by [place] 600 MG 00:00: mouth. of tablet 00 Medicin e hydrocodone 2020-0 Yes TAKE 2 [facility] -acetaminop 9-23 TABLETS BY Co timmy núñez (PlaceIQKS) 00:00: MOUTH of 5-325 mg 00 EVERY 4 Medicin tablet HOURS e NEEDED FOR UP TO 10 DAYS. MAX 12 TABLETS/DA Y losartan 2020-0 Yes [facility] (ANNAZAAR) 25 9-23 College MG tablet 00:00: of 00 Medicin e losartan 2020-0 Yes [facility] (COZAAR) 25 9-23 College MG tablet 00:00: of 00 Medicin e gabapentin 2020-0 Yes 600mg [id number] Take [address] [facility] (NEURONTIN) 9-23 [id number] tablet [facility] 600 MG 00:00: 3D (600 mg Medical tablet 00 total) by Center mouth 3 (three) times daily. gabapentin 2020-0 Yes 600mg [id number] Take [address] [facility] (NEURONTIN) 9-23 [id number] tablet [facility] 600 MG 00:00: 3D (600 mg Medical tablet 00 total) by Center mouth 3 (three) times daily. gabapentin 2020-0 Yes 600mg [id number] Take [address] [facility] (NEURONTIN) 9-23 [id number] tablet [facility] 600 MG 00:00: 3D (600 mg Medical tablet 00 total) by Center mouth 3 (three) times daily. gabapentin 2020-0 Yes 600mg [id number] Take [address] [facility] [facility] (NEURONTIN) 07-23 [id number] tablet [facility] 600 MG 00:00: 3D (600 mg Medical tablet 00 total) by Center mouth 3 (three) times daily. gabapentin 2020-0 Yes 600mg [id number] Take [address] [facility] (NEURONTIN) 07-23 [id number] tablet [facility] 600 MG 00:00: 3D (600 mg Medical tablet 00 total) by Center mouth 3 (three) times daily. amlodipine 2020- No 5mg Take 5 mg [facility] (NORVASC) 07-23 by mouth. Theo ege 10 MG 00:00: 04:59 of tablet 00 :00 Medicin e Multiple 2020- No 1{tbl} Take 1 Tab [facility] Vitamins-Mi 07-23 by mouth. Co llege nerals 00:00: 04:59 of (MULTIVITAM 00 :00 Medicin IN ADULT e OR) losartan 2020- No [facility] (COZAAR) 25 07-23 07-15 College MG tablet 00:00: 00:00 of 00 :00 Medicin e amlodipine 2019- No 5mg Take 5 mg [facility] (NORVASC) 07-23 by mouth. Theo ege 10 MG 00:00: 00:00 of tablet 00 :00 Medicin e hydrocodone 2019- No TAKE 2 [facility] -acetaminop 07-23 TABLETS BY Abena núñez (NORCO) 00:00: 00:00 MOUTH of 5-325 mg 00 :00 EVERY 4 Medicin tablet HOURS e NEEDED FOR UP TO 10 DAYS. MAX 12 TABLETS/DA Y Multiple 2020- No 1{tbl} Take 1 Tab [facility] Vitamins-Mi 07-23 by mouth. Co llege nerals 00:00: 00:00 of (MULTIVITAM 00 :00 Medicin IN ADULT e OR) Cyanocobala 2019-0 Yes [facility] min (B-12) 1- College 2500 MCG 00:00: of TABS 00 Medicin e Melatonin 2019-0 Yes [facility] 10 MG TABS 10-31 College 00:00: of 00 Medicin e Cyanocobala 2020-0 Yes [facility] min (B-12) 10-31 [place] 2500 MCG 00:00: of TABS 00 Medicin e Melatonin 2020-0 Yes [facility] 10 MG TABS 10-31 [place] 00:00: of 00 Medicin e Cyanocobala 2020-0 Yes Mode min (B-12) 10-31 [place] 2500 MCG 00:00: of TABS 00 Medicin e Cyanocobala 2020-0 Yes [facility] min (B-12) 10-31 [place] 2500 MCG 00:00: of TABS 00 Medicin e Melatonin 2020-0 Yes Mode 10 MG TABS 10-31 [place] 00:00: of 00 Medicin e Melatonin 2020-0 Yes Mode 10 MG TABS 10-31 [place] 00:00: of 00 Medicin e Cyanocobala 2020-0 Yes Mode min (B-12) 10-31 [place] 2500 MCG 00:00: of TABS 00 Medicin e Melatonin 2020-0 Yes Mode 10 MG TABS 10-31 [place] 00:00: of 00 Medicin e Cyanocobala 2020-0 Yes [facility] min (B-12) 10-31 [place] 2500 MCG 00:00: of TABS 00 Medicin e Melatonin 2020-0 Yes Mode 10 MG TABS 10-31 [place] 00:00: of 00 Medicin e Cyanocobala 2020-0 Yes [facility] min (B-12) 10-31 [place] 2500 MCG 00:00: of TABS 00 Medicin e Melatonin 2020-0 Yes [facility] 10 MG TABS 10-31 [place] 00:00: of 00 Medicin e Cyanocobala 2020-0 Yes [facility] min (B-12) 10-31 [place] 2500 MCG 00:00: of TABS 00 Medicin e Melatonin 2020-0 Yes Mode 10 MG TABS 10-31 [place] 00:00: of 00 Medicin e Cyanocobala 2020-0 Yes [facility] min (B-12) 10-31 [place] 2500 MCG 00:00: of TABS 00 Medicin e Melatonin 2020-0 Yes [facility] 10 MG TABS 10-31 [place] 00:00: of 00 Medicin e Cyanocobala 2020-0 Yes [facility] min (B-12) 10-31 [place] 2500 MCG 00:00: of TABS 00 Medicin e Melatonin 2020-0 Yes Mode 10 MG TABS 10-31 [place] 00:00: of 00 Medicin e Cyanocobala 2020-0 Yes [facility] min (B-12) 10-31 [place] 2500 MCG 00:00: of TABS 00 Medicin e Melatonin 2020-0 Yes Mode 10 MG TABS 10-31 [place] 00:00: of 00 Medicin e acetaminoph 2018-0 Yes 1{tbl} Q4H Take 1 Me thodi en-codeine 9-[address] (TYLENOL 11:26: mouth Hospita WITH 07 every 4 l CODEINE #3) (four) 300-30 mg hours as per tablet needed for moderate pain. DOCUSATE 2018-0 Yes Take by Method i CALCIUM 07-[address] ORAL 11:26: Hospita 07 l Lactobacill 2018-0 Yes Take by Met hodi us 07-[address] acidophilus 11:26: Hospit a (PROBIOTIC 07 l ORAL) cyanocobala 2018-0 Yes Take by Met hodi min, 07-[address] vitamin 11:26: Hospita B-12, 07 l (VITAMIN B-12 ORAL) polyethylen 2018-0 Yes Take by Met hodi e glycol 07-[address] 3350 11:26: Hospita (MIRALAX 07 l ORAL) acetaminoph 2018-0 Yes 1{tbl} Q4H Take 1 Me thodi en-codeine 9- tablet by st (TYLENOL 11:26: mouth [facility]ospita WITH 07 every 4 l CODEINE #3) (four) 300-30 mg hours as per tablet needed for moderate pain. DOCUSATE 2018-0 Yes Take by Method i CALCIUM 07-[address] ORAL 11:26: Hospita 07 l Lactobacill 2018-0 Yes Take by Met hodi us 07-[address] acidophilus 11:26: Hospit a (PROBIOTIC 07 l ORAL) cyanocobala 2018-0 Yes Take by Met hodi min, 07-[address] vitamin 11:26: Hospita B-12, 07 l (VITAMIN B-12 ORAL) polyethylen 2018-0 Yes Take by Met hodi e glycol 07-[address] 3350 11:26: Hospita (MIRALAX 07 l ORAL) acetaminoph 2018-0 Yes 1{tbl} Q4H Take 1 Me thodi en-codeine 9- tablet by st (TYLENOL 11:26: mouth [facility]osp[facility] WITH 07 every 4 l CODEINE #3) (four) 300-30 mg hours as per tablet needed for moderate pain. DOCUSATE 2017-0 Yes Take by Method i CALCIUM - mouth. st ORAL 11:26: Hospita 07 l Lactobacill 2017-0 Yes Take by Met hodi us 07-[address] acidophilus 11:26: Hospit a (PROBIOTIC 07 l ORAL) cyanocobala 2017-0 Yes Take by Met hodi min, 07-[address] vitamin 11:26: Hospita B-12, 07 l (VITAMIN B-12 ORAL) polyethylen 0 Yes Take by Met hodi e glycol 07-[address] 3350 11:26: Hospita (MIRALAX 07 l ORAL) acetaminoph 2017-0 Yes 1{tbl} Q4H Take 1 Me thodi en-codeine 07-02 tablet by (TYLENOL 11:26: mouth [facility]ospita WITH 07 every 4 l CODEINE #3) (four) 300-30 mg hours as per tablet needed for moderate pain. DOCUSATE 2017-0 Yes Take by Method i CALCIUM 07-[address] ORAL 11:26: Hospita 07 l Lactobacill 2017-0 Yes Take by Met hodi us 07-[address] acidophilus 11:26: Hospit a (PROBIOTIC 07 l ORAL) cyanocobala 0 Yes Take by Met hodi min, 07-[address] vitamin 11:26: Hospita B-12, 07 l (VITAMIN B-12 ORAL) polyethylen 2017-0 Yes Take by Met hodi e glycol 07-[address] 3350 11:26: Hospita (MIRALAX 07 l ORAL) gabapentin 2003-10 Yes 600mg Take 600 [facility] (NEURONTIN) 0-23 mg by [place] 600 MG 00:00: mouth. of tablet 00 Medicin e gabapentin 2003-10 Yes 600mg Take 600 [facility] (NEURONTIN) 0-23 mg by [place] 600 MG 00:00: mouth. of tablet 00 Medicin e gabapentin 2003-10 2020- No 600mg Take 600 [facility]ONTIN[facility] 0[facility] mouth. of tablet 00 :00 Medicin e Immunizations Ordered Immunization Filled Immunization Date Status Commen ts Source Name Name Influenza (whole) 2020-08-12 Completed [facility] 00:00:00 of Medicine Influenza (whole) 2020-08-12 Completed [facility] 00:00:00 of Medicine Influenza (whole) 2020-08-12 Completed [facility] 00:00:00 of Medicine Influenza (whole) 2020-08-12 Completed [facility] 00:00:00 of Medicine Influenza (whole) 2020-08-12 Completed [facility] 00:00:00 of Medicine Influenza (whole) 2020-08-12 Completed [facility] 00:00:00 of Medicine Influenza (whole) 2020-08-12 Completed [facility] 00:00:00 of Medicine Influenza (whole) 2020-08-12 Completed [facility] 00:00:00 of Medicine Influenza (whole) 2020-08-12 Completed [facility] 00:00:00 of Medicine Influenza (whole) 2020-08-12 Completed [facility] 00:00:00 of Medicine Vital Signs Vital Name Observation Time Observation Value Comments Source HEIGHT 2020-07-17 00:00:00 160 cm WEIGHT 2020-07-17 00:00:00 113.309 kg Systolic blood 2021-12-02 16:40:00 145 mm[Hg] [facility] pressure Medicine Diastolic blood 2021-12-02 16:40:00 79 mm[Hg] [facility] pressure Medicine Heart rate 2021-12-02 16:40:00 83 /[facility] Body temperature 2021-12-02 16:40:00 36.89 Han[facility] Systolic blood 2021-08-26 15:31:00 148 mm[Hg] [facility] Medicine Diastolic blood 2021-08-26 15:31:00 83 mm[Hg] [facility] pressure Medicine Heart rate 2021-08-26 15:31:00 66 /min [facility] of Medicine Body height 2021-08-26 15:31:00 157.5 cm [facility] Body weight 2021-08-26 15:31:00 106.595 kg [facility] Medicine BMI 2021-08-26 15:31:00 42.98 [facility]m2 [facility] Systolic blood 2021-07-23 14:49:00 152 mm[Hg] [facility] pressure Medicine Diastolic blood 2021-07-23 14:49:00 77 mm[Hg] [facility] Medicine Heart rate 2021-07-23 14:49:00 80 /min [facility] Body height 2021-07-23 14:49:00 160 cm [facility] Body weight 2021-07-23 14:49:00 104.327 kg [facility] ol[facility] of Medicine BMI 2021-07-23 14:49:00 40.74 kg/m2 [facility] of Medicine Systolic blood 2021-05-14 13:56:00 149 mm[Hg] [facility] pressure Medicine Diastolic blood 2021-05-14 13:56:00 74 mm[Hg] [facility] Medicine Heart rate 2021-05-14 13:56:00 82 /min [facility] of Medicine Body height 2021-05-14 13:56:00 160 cm [facility] Medicine Body weight 2021-05-14 13:56:00 104.327 kg [facility] Medicine BMI 2021-05-14 13:56:00 40.74 kg/m2 [facility] of Medicine Systolic blood 2021-02-04 15:11:00 162 mm[Hg] [facility] pressure Medicine Diastolic blood 2021-02-04 15:11:00 83 mm[Hg] [facility] pressure Medicine Heart rate 2021-02-04 15:11:00 73 /min [facility] of Medicine Body temperature 2021-02-04 15:11:00 37 Hanane [facility] Body height 2021-02-04 15:11:00 160 cm [facility] Body weight 2021-02-04 15:11:00 106.595 kg [facility] of Medicine BMI 2021-02-04 15:11:00 41.63 kg/m2 [facility] of Medicine Systolic blood 2020-12-24 17:13:00 161 mm[Hg] [facility] of pressure Medicine Diastolic blood 2020-12-24 17:13:00 81 mm[Hg] [facility] of pressure Medicine Heart rate 2020-12-24 17:13:00 89 /min [facility] Body height 2020-12-24 17:13:00 160 cm [facility] Body weight 2020-12-24 17:13:00 106.595 kg [facility] BMI 2020-12-24 17:13:00 41.63 kg/m2 [facility] Medicine Systolic blood 2020-10-20 16:29:00 137 mm[Hg] [facility] of pressure Medicine Diastolic blood 2020-10-20 16:29:00 76 mm[Hg] [facility] of pressure Medicine Heart rate 2020-10-20 16:29:00 96 /min [facility] Body height 2020-10-20 16:29:00 160 cm [facility] Body weight 2020-10-20 16:29:00 106.595 kg [facility] BMI 2020-10-20 16:29:00 41.63 kg/m2 [facility] Systolic blood 2020-09-15 15:39:00 169 mm[Hg] [facility] of pressure Medicine Diastolic blood 2020-09-15 15:39:00 79 mm[Hg] [facility] of pressure Medicine Heart rate 2020-09-15 15:39:00 71 /min [facility] Body temperature 2020-09-15 15:39:00 36.06 Hanane [facility] Respiratory rate 2020-09-15 15:39:00 16 /min [facility] Body height 2020-09-15 15:39:00 160 cm [facility] Body weight 2020-09-15 15:39:00 109.045 kg [facility] BMI 2020-09-15 15:39:00 42.58 kg/m2 [facility] Body weight 2020-09-03 20:20:00 111.131 kg [facility] BMI 2020-09-03 20:20:00 43.40 kg/m2 [facility] Body height 2020-09-03 20:20:00 160 cm [facility] Systolic blood 2020-08-27 15:08:00 144 mm[Hg] [facility] pressure Medicine Diastolic blood 2020-08-27 15:08:00 69 mm[Hg] [facility] pressure Medicine Heart rate 2020-08-27 15:08:00 73 /min [facility] Body height 2020-08-27 15:08:00 160 cm [facility] Body weight 2020-08-27 15:08:00 111.131 kg [facility] BMI 2020-08-27 15:08:00 43.40 kg/m2 [facility] HEIGHT 2020-07-17 00:00:00 160 cm WEIGHT 2020-07-17 00:00:00 113.309 kg Procedures This patient has no known procedures. Plan of Care Planned Activity Planned Date Details Comments Source Future Scheduled 2022-11-22 COVID-[address] Test 11:45:08 (#1) [code = Hospital COVID-19 VACCINE (#1)] Future Scheduled 2022-11-22 BREAST CANCER [facility] 11:45:08 SCREENING [code = Hospital BREAST CANCER SCREENING] Future Scheduled 2022-11-22 COLONOSCOPY [facility] 11:45:08 SCREENING [code = Hospital COLONOSCOPY SCREENING] Future Scheduled 2022-11-22 SHINGLES VACCINES (1 [facility] 11:45:08 of 2) [code = Hospital SHINGLES VACCINES (1 of 2)] Future Scheduled 2022-11-22 65+ [facility]OCOCCAL [facility] Test 11:45:08 VACCINE (1 - PCV) Hospital [code = 65+ PNEUMOCOCCAL VACCINE (1 - PCV)] Future Scheduled 2022-11-22 INFLUENZA VACCINE [facility] Test 11:45:08 [code = INFLUENZA Hospital VACCINE] Future Scheduled 2022-11-14 COVID-[address] Test 14:43:23 (#1) [code = Hospital COVID-19 VACCINE (#1)] Future Scheduled 2022-11-14 BREAST CANCER [facility] Test 14:43:23 SCREENING [code = Hospital BREAST CANCER SCREENING] Future Scheduled 2022-11-14 COLONOSCOPY [facility] Test 14:43:23 SCREENING [code = Hospital COLONOSCOPY SCREENING] Future Scheduled 2022-11-14 SHINGLES VACCINES (1 [facility] 14:43:23 of 2) [code = Hospital SHINGLES VACCINES (1 of 2)] Future Scheduled 2022-11-14 65+ [facility]UMOCOCCAL [facility] Test 14:43:23 VACCINE (1 - PCV) Hospital [code = 65+ PNEUMOCOCCAL VACCINE (1 - PCV)] Future Scheduled 2022-11-14 INFLUENZA VACCINE [facility] Test 14:43:23 [code = INFLUENZA Hospital VACCINE] Future Scheduled 2022-10-[address] [facility] Test 00:00:00 (12+) [code = Medical Center DEPRESSION SCREENING (12+)] Future Scheduled 2022-10-31 FALLS RISK SCREENING [facility] Test 00:00:00 [code = FALLS RISK Medical C enter SCREENING] Future Scheduled 2022-10-[address] [facility] Test 00:00:00 (12+) [code = Medical Center DEPRESSION SCREENING (12+)] Future Scheduled 2022-10-31 FALLS RISK SCREENING [facility] Test 00:00:00 [code = FALLS RISK Medical C enter SCREENING] Future Scheduled 2022-10-[address] [facility] Test 00:00:00 (12+) [code = Medical Center DEPRESSION SCREENING (12+)] Future Scheduled 2022-10-31 F[address]S RISK SCREENING [facility] Test 00:00:00 [code = FALLS RISK Medical C enter SCREENING] Future Scheduled 2022-10-16 COVID-[address] Test 14:33:18 (#1) [code = Hospital COVID-19 VACCINE (#1)] Future Scheduled 2022-10-16 BREAST CANCER [facility] Test 14:33:18 SCREENING [code = Hospital BREAST CANCER SCREENING] Future Scheduled 2022-10-16 COLONOSCOPY [facility] 14:33:18 SCREENING [code = Hospital COLONOSCOPY SCREENING] Future Scheduled 2022-10-16 SHINGLES VACCINES (1 [facility] 14:33:18 of 2) [code = Hospital SHINGLES VACCINES (1 of 2)] Future Scheduled 2022-10-16 65+ [facility]OCOCCAL [facility] Test 14:33:18 VACCINE (1 - PCV) Hospital [code = 65+ PNEUMOCOCCAL VACCINE (1 - PCV)] Future Scheduled 2022-10-16 INFLUENZA VACCINE [facility] Test 14:33:18 [code = INFLUENZA Hospital VACCINE] Future Scheduled 2022-10-16 COVID-[address] Test 14:33:18 (#1) [code = Hospital COVID-19 VACCINE (#1)] Future Scheduled 2022-10-16 BREAST CANCER [facility] Test 14:33:18 SCREENING [code = Hospital BREAST CANCER SCREENING] Future Scheduled 2022-10-16 COLONOSCOPY [facility] Test 14:33:18 SCREENING [code = Hospital COLONOSCOPY SCREENING] Future Scheduled 2022-10-16 SHINGLES VACCINES (1 [facility] 14:33:18 of 2) [code = Hospital SHINGLES VACCINES (1 of 2)] Future Scheduled 2022-10-16 65+ [facility]OCOCCAL [facility] Test 14:33:18 VACCINE (1 - PCV) Hospital [code = 65+ PNEUMOCOCCAL VACCINE (1 - PCV)] Future Scheduled 2022-10-16 INFLUENZA VACCINE [facility] Test 14:33:18 [code = INFLUENZA Hospital VACCINE] Future Scheduled 2022-07-[address] [facility] Test 00:00:00 (#1) [code = Medical Center INFLUENZA VACCINE (#1)] Future Scheduled 2022-07-[address] [facility] Test 00:00:00 (#1) [code = Medical Center INFLUENZA VACCINE (#1)] Future Scheduled 2022-07-[address] [facility] Test 00:00:00 (#1) [code = Medical Center INFLUENZA VACCINE (#1)] Future Scheduled 2022-07-[address] [facility] Test 00:00:00 (#1) [code = Medical Center INFLUENZA VACCINE (#1)] Future Scheduled 2022-07-[address] [facility] Test 00:00:00 (#1) [code = Medical Center INFLUENZA VACCINE (#1)] Future Scheduled 2021-12-02 Screening for [facility] Test 10:32:58 malignant neoplasm of Medici ne of colon (procedure) [code = 162950082] Future Scheduled 2021-12-02 Screening for [facility] Test 10:32:58 malignant neoplasm of Medici ne of breast (procedure) [code = 411472998] Future Scheduled 2021-12-02 TETANUS SHOT (ADULT) [facility] Test 10:32:58 [code = TETANUS SHOT of Medi cine (ADULT)] Future Scheduled 2021-12-02 Hepatitis C [facility] Test 10:32:58 screening of Medicine (procedure) [code = 028419726] Future Scheduled 2021-12-02 ZOSTER VACCINE (1 of [employer] Test 10:32:58 2) [code = ZOSTER of Medicin e VACCINE (1 of 2)] Future Scheduled 2021-12-02 MEDICARE AWV [facility] Test 10:32:58 (Initial) [code = of Medicin e MEDICARE AWV (Initial)] Future Scheduled 2021-12-02 Screening for [facility] Test 10:32:58 osteoporosis of Medicine (procedure) [code = 582946792] Future Scheduled 2021-12-02 Pneumococcal 65+ (1 [employer] Test 10:32:58 of 1 - PPSV23) [code of Medi cine = Pneumococcal 65+ (1 of 1 - PPSV23)] Future Scheduled 2021-12-02 FLU VACCINE > 6 [facility] Test 10:32:58 MONTHS [code = FLU of Medici ne VACCINE > 6 MONTHS] Future Scheduled 2021-12-02 COVID-19 Vaccine (3 [employer] Test 10:32:58 - Booster) [code = of Medici ne COVID-19 Vaccine (3 - Booster)] Future Scheduled 2021-12-02 BMI FOLLOW UP PLAN [employer] Test 10:32:58 [code = BMI FOLLOW of Medici ne UP PLAN] Future Scheduled 2021-12-02 FALL SCREEN [code = [employer] Test 10:32:58 FALL SCREEN] of Medicine Future Scheduled 2021-10-31 FALLS RISK SCREENING [facility] Test 00:00:00 [code = FALLS RISK Medical C enter SCREENING] Future Scheduled 2021-10-[address] [facility] Test 00:00:00 (12+) [code = Medical Center DEPRESSION SCREENING (12+)] Future Scheduled 2021-10-31 FALLS RISK SCREENING [facility] Test 00:00:00 [code = FALLS RISK Medical C enter SCREENING] Future Scheduled 2021-10-[address] [facility] Test 00:00:00 (12+) [code = Medical Center DEPRESSION SCREENING (12+)] Future Scheduled 2021-09-03 Screening for [facility] Test 13:41:06 malignant neoplasm of Medici ne of colon (procedure) [code = 133930939] Future Scheduled 2021-09-03 Screening for [facility] Test 13:41:06 malignant neoplasm of Medici ne of breast (procedure) [code = 764297284] Future Scheduled 2021-09-03 TETANUS SHOT (ADULT) [employer] Test 13:41:06 [code = TETANUS SHOT of Medi cine (ADULT)] Future Scheduled 2021-09-03 Hepatitis C [facility] Test 13:41:06 screening of Medicine (procedure) [code = 148006305] Future Scheduled 2021-09-03 ZOSTER VACCINE (1 of [employer] Test 13:41:06 2) [code = ZOSTER of Medicin e VACCINE (1 of 2)] Future Scheduled 2021-09-03 Screening for [facility] Test 13:41:06 osteoporosis of Medicine (procedure) [code = 352305968] Future Scheduled 2021-09-03 PNEUMOVAX >=65 [facility] Test 13:41:06 (PPSV23) [code = of Medicine PNEUMOVAX >=65 (PPSV23)] Future Scheduled 2021-09-03 MEDICARE AWV [facility] Test 13:41:06 (Initial) [code = of Medicin e MEDICARE AWV (Initial)] Future Scheduled 2021-09-03 FLU VACCINE > 6 [facility] Test 13:41:06 MONTHS [code = FLU of Medici ne VACCINE > 6 MONTHS] Future Scheduled 2021-09-03 BMI FOLLOW UP PLAN [facility] [employer] Test 13:41:06 [code = BMI FOLLOW of Medici ne UP PLAN] Future Scheduled 2021-09-03 FALL SCREEN [code = [employer] Test 13:41:06 FALL SCREEN] of Medicine Future Scheduled 2021-07-29 Screening for [facility] Test 10:27:31 malignant neoplasm of Medici ne of colon (procedure) [code = 307104908] Future Scheduled 2021-07-29 Screening for [facility] Test 10:27:31 malignant neoplasm of Medici ne of breast (procedure) [code = 565022155] Future Scheduled 2021-07-29 COVID-19 Vaccine (1) [employer] Test 10:27:31 [code = COVID-19 of Medicine Vaccine (1)] Future Scheduled 2021-07-29 TETANUS SHOT (ADULT) [employer] Test 10:27:31 [code = TETANUS SHOT of Medi cine (ADULT)] Future Scheduled 2021-07-29 Hepatitis C [facility] Test 10:27:31 screening of Medicine (procedure) [code = 873309317] Future Scheduled 2021-07-29 ZOSTER VACCINE (1 of [employer] Test 10:27:31 2) [code = ZOSTER of Medicin e VACCINE (1 of 2)] Future Scheduled 2021-07-29 Screening for [facility] Test 10:27:31 osteoporosis of Medicine (procedure) [code = 019591539] Future Scheduled 2021-07-29 PNEUMOVAX >=65 [facility] Test 10:27:31 (PPSV23) [code = of Medicine PNEUMOVAX >=65 (PPSV23)] Future Scheduled 2021-07-29 MEDICARE AWV [facility] Test 10:27:31 (Initial) [code = of Medicin e MEDICARE AWV (Initial)] Future Scheduled 2021-07-29 FLU VACCINE > 6 [facility] Test 10:27:31 MONTHS [code = FLU of Medici ne VACCINE > 6 MONTHS] Future Scheduled 2021-07-29 BMI FOLLOW UP PLAN [facility] [employer] Test 10:27:31 [code = BMI FOLLOW of Medici ne UP PLAN] Future Scheduled 2021-07-29 FALL SCREEN [code = [employer] Test 10:27:31 FALL SCREEN] of Medicine Future Scheduled 2021-07-29 Screening for [facility] Test 10:27:31 malignant neoplasm of Medici ne of colon (procedure) [code = 263813245] Future Scheduled 2021-07-29 Screening for [facility] Test 10:27:31 malignant neoplasm of Medici ne of breast (procedure) [code = 867730285] Future Scheduled 2021-07-29 COVID-19 Vaccine (1) [employer] Test 10:27:31 [code = COVID-19 of Medicine Vaccine (1)] Future Scheduled 2021-07-29 TETANUS SHOT (ADULT) [employer] Test 10:27:31 [code = TETANUS SHOT of Medi cine (ADULT)] Future Scheduled 2021-07-29 Hepatitis C [facility] Test 10:27:31 screening of Medicine (procedure) [code = 528137255] Future Scheduled 2021-07-29 ZOSTER VACCINE (1 of [facility] Test 10:27:31 2) [code = ZOSTER of Medicin e VACCINE (1 of 2)] Future Scheduled 2021-07-29 Screening for [facility] Test 10:27:31 osteoporosis of Medicine (procedure) [code = 363206304] Future Scheduled 2021-07-29 PNEUMOVAX >=65 [facility] Test 10:27:31 (PPSV23) [code = of Medicine PNEUMOVAX >=65 (PPSV23)] Future Scheduled 2021-07-29 MEDICARE AWV [facility] Test 10:27:31 (Initial) [code = of Medicin e MEDICARE AWV (Initial)] Future Scheduled 2021-07-29 FLU VACCINE > 6 [facility] Test 10:27:31 MONTHS [code = FLU of Medici ne VACCINE > 6 MONTHS] Future Scheduled 2021-07-29 BMI FOLLOW UP PLAN [facility] [place] Test 10:27:31 [code = BMI FOLLOW of Medici ne UP PLAN] Future Scheduled 2021-07-29 FALL SCREEN [code = [facility] [place] Test 10:27:31 FALL SCREEN] of Medicine Future Scheduled 2021-07-[address] [facility] Test 00:00:00 Counseling and Medical Cente r Screening (12+) [code = Tobacco Cessation Counseling and Screening (12+)] Future Scheduled 2021-07-[address] [facility] Test 00:00:00 [facility] Cent[facility] r Screening (12+) [code = Tobacco Cessation Counseling and Screening (12+)] Future Scheduled 2021-07-[address] [facility] Test 00:00:00 [facility] Cent[facility] r Screening (12+) [code = Tobacco Cessation Counseling and Screening (12+)] Future Scheduled 2021-07-[address] [facility] Test 00:00:00 [facility]ing [facility] Medical Cent[facility] r Screening (12+) [code = Tobacco Cessation Counseling and Screening (12+)] Future Scheduled 2021-07-[address] [facility] Test 00:00:00 [facility]ing [facility] Medical Cent[facility] r Screening (12+) [code = Tobacco Cessation Counseling and Screening (12+)] Future Scheduled 2021-05-14 Screening for [facility] Test 16:18:21 malignant neoplasm of Medici ne of colon (procedure) [code = 988993059] Future Scheduled 2021-05-14 Screening for [facility] Test 16:18:21 malignant neoplasm of Medici ne of breast (procedure) [code = 391630935] Future Scheduled 2021-05-14 COVID-19 Vaccine (1) [facility] Test 16:18:21 [code = COVID-19 of Medicine Vaccine (1)] Future Scheduled 2021-05-14 TETANUS SHOT (ADULT) [facility] Test 16:18:21 [code = TETANUS SHOT of Medi cine (ADULT)] Future Scheduled 2021-05-14 Hepatitis C [facility] Test 16:18:21 screening of Medicine (procedure) [code = 698458719] Future Scheduled 2021-05-14 ZOSTER VACCINE (1 of [facility] Test 16:18:21 2) [code = ZOSTER of Medicin e VACCINE (1 of 2)] Future Scheduled 2021-05-14 Screening for [facility] Test 16:18:21 osteoporosis of Medicine (procedure) [code = 236862046] Future Scheduled 2021-05-14 PNEUMOVAX >=65 [facility] Test 16:18:21 (PPSV23) [code = of Medicine PNEUMOVAX >=65 (PPSV23)] Future Scheduled 2021-05-14 MEDICARE IPPE [facility] Test 16:18:21 (WELCOME TO of Medicine MEDICARE) [code = MEDICARE IPPE (WELCOME TO MEDICARE)] Future Scheduled 2021-05-14 FLU VACCINE > 6 [facility] Test 16:18:21 MONTHS [code = FLU of Medici ne VACCINE > 6 MONTHS] Future Scheduled 2021-05-14 FALL SCREEN [code = [facility] Test 16:18:21 FALL SCREEN] of Medicine Future Scheduled 2021-05-14 BMI FOLLOW UP PLAN [facility] Test 16:18:21 [code = BMI FOLLOW of Medici ne UP PLAN] Future Scheduled 2021-05-14 XR FOREARM LEFT 1 Occurrences [facility] Test 10:27:04 (COMPLETE) [code = [place] [address]] 05/14/2021 until 05/14/2022 Future Scheduled 2020-11-[address] [facility] Test 00:00:00 WELLNESS (YEAR 2 or Medical Center FIRST YEAR if no IPPE) [code = MEDICARE ANNUAL WELLNESS (YEAR 2 or FIRST YEAR if no IPPE)] Future Scheduled 2020-11-[address] [facility] Test 00:00:00 WELLNESS (YEAR 2 or Medical Center FIRST YEAR if no IPPE) [code = MEDICARE ANNUAL WELLNESS (YEAR 2 or FIRST YEAR if no IPPE)] Future Scheduled 2020-11-[address] [facility] Test 00:00:00 WELLNESS (YEAR 2 or Medical Center FIRST YEAR if no IPPE) [code = MEDICARE ANNUAL WELLNESS (YEAR 2 or FIRST YEAR if no IPPE)] Future Scheduled 2020-11-[address] [facility] Test 00:00:00 WELLNESS (YEAR 2 or Medical Center FIRST YEAR if no IPPE) [code = MEDICARE ANNUAL WELLNESS (YEAR 2 or FIRST YEAR if no IPPE)] Future Scheduled 2020-11-[address] [facility] Test 00:00:00 WELLNESS (YEAR 2 or Medical Center FIRST YEAR if no IPPE) [code = MEDICARE ANNUAL WELLNESS (YEAR 2 or FIRST YEAR if no IPPE)] Future Scheduled 2016-02-10 PNEUMOCOCCAL 65+ YRS [facility] Test 00:00:00 (1 - PCV) [code = Medical Ce nter PNEUMOCOCCAL 65+ YRS (1 - PCV)] Future Scheduled 2016-02-10 PNEUMOCOCCAL 65+ YRS [facility] Test 00:00:00 (1 - PCV) [code = Medical Ce nter PNEUMOCOCCAL 65+ YRS (1 - PCV)] Future Scheduled 2016-02-10 PNEUMOCOCCAL 65+ YRS [facility] Test 00:00:00 (1 - PCV) [code = Medical Ce nter PNEUMOCOCCAL 65+ YRS (1 - PCV)] Future Scheduled 2016-02-10 PNEUMOCOCCAL 65+ YRS [facility] Test 00:00:00 (1 - PCV) [code = Medical Ce nter PNEUMOCOCCAL 65+ YRS (1 - PCV)] Future Scheduled 2016-02-10 PNEUMOCOCCAL 65+ YRS [facility] Test 00:00:00 (1 - PCV) [code = Medical Ce nter PNEUMOCOCCAL 65+ YRS (1 - PCV)] Future Scheduled 2001 SHINGLES VACCINES ([address] [facility] Test 00:00:00 of 2) [code = Medical Center SHINGLES VACCINES (1 of 2)] Future Scheduled 2001 SHINGLES VACCINES ([address] [facility] Test 00:00:00 of 2) [code = Medical Center SHINGLES VACCINES (1 of 2)] Future Scheduled 2001 SHINGLES VACCINES ([address] [facility] Test 00:00:00 of 2) [code = Medical Center SHINGLES VACCINES (1 of 2)] Future Scheduled 2001 SHINGLES VACCINES ([address] [facility] Test 00:00:00 of 2) [code = Medical Center SHINGLES VACCINES (1 of 2)] Future Scheduled 2001 SHINGLES VACCINES ([address] [facility] Test 00:00:00 of 2) [code = Medical Center SHINGLES VACCINES (1 of 2)] Future Scheduled 1970 DTAP/TDAP/TD [facility] Test 00:[facility]:00 VACCINES (1 - Tdap) Medical Center [code = DTAP/TDAP/TD VACCINES (1 - Tdap)] Future Scheduled 1970 DTAP/TDAP/TD [facility] Test 00:00:00 VACCINES (1 - Tdap) Medical Center [code = DTAP/TDAP/TD VACCINES (1 - Tdap)] Future Scheduled 1970 DTAP/TDAP/TD [facility] Test 00:00:00 VACCINES (1 - Tdap) Medical Center [code = DTAP/TDAP/TD VACCINES (1 - Tdap)] Future Scheduled 1970 DTAP/TDAP/TD [facility] Test 00:00:00 VACCINES (1 - Tdap) Medical Center [code = DTAP/TDAP/TD VACCINES (1 - Tdap)] Future Scheduled 1970 DTAP/TDAP/TD [facility] Test 00:00:00 VACCINES (1 - Tdap) Medical Center [code = DTAP/TDAP/TD VACCINES (1 - Tdap)] Future Scheduled [address] [facility] Test 00:00:00 SCREENING [code = Medical Ce nter HEPATITIS C SCREENING] Future Scheduled [address] [facility] Test 00:00:00 SCREENING [code = Medical Ce nter HEPATITIS C SCREENING] Future Scheduled [address] [facility] Test 00:00:00 SCREENING [code = Medical Ce nter HEPATITIS C SCREENING] Future Scheduled [address] [facility] Test 00:00:00 SCREENING [code = Medical Ce nter HEPATITIS C SCREENING] Future Scheduled [address] [facility] Test 00:00:00 SCREENING [code = Medical Ce nter HEPATITIS C SCREENING] Future Scheduled 1951 COVID-[address] [facility] Test 00:00:00 (#1) [code = [facility] COVID-19 VACCINE (#1)] Future Scheduled 1951 COVID-[address] [facility] Test 00:00:00 (#1) [code = [facility] COVID-19 VACCINE (#1)] Future Scheduled 1951 COVID-[address] [facility] Test 00:00:00 (#1) [code = [facility] COVID-19 VACCINE (#1)] Future Scheduled 1951 COVID-[address] [facility] Test 00:00:00 (#1) [code = [facility] COVID-19 VACCINE (#1)] Future Scheduled 1951 COVID-[address] [facility] Test 00:00:00 (#1) [code = [facility] COVID-19 VACCINE (#1)] Future Scheduled [address] [facility] Test 00:[facility]:00 malignant neoplasm Medical C enter of breast (procedure) [code = 006518444] Future Scheduled [address] [facility] Test 00:00:00 (combo) [code = CT Medical C enter Colonography (combo)] Future Scheduled [address] [facility] Test 00:00:00 malignant neoplasm Medical C enter of colon (procedure) [code = 588697963] Future Scheduled [address] [facility] Test 00:00:00 malignant neoplasm Medical C enter of colon (procedure) [code = 866649296] Future Scheduled 1951 DXA SCAN [code = DXA [facility] Test 00:00:00 SCAN] [facility] Future Scheduled [address] [facility] Test 00[facility]00:00 malignant neoplasm Medical C enter of colon (procedure) [code = 409766102] Future Scheduled [address] [facility] Test 00:00:00 malignant neoplasm Medical C enter of colon (procedure) [code = 917029544] Future Scheduled 1951 Sigmoidoscopy [code [facility] Test 00:00:00 = Sigmoidoscopy] [facility] Future Scheduled [address] [facility] 00:00:00 malignant neoplasm Medical C enter of breast (procedure) [code = 151774333] Future Scheduled [address] [facility] 00:00:00 (combo) [code = CT Medical C enter Colonography (combo)] Future Scheduled [address] [facility] 00:00:00 malignant neoplasm Medical C enter of colon (procedure) [code = 793517283] Future Scheduled [address] [facility] Test 00:00:00 malignant neoplasm Medical C enter of colon (procedure) [code = 921541975] Future Scheduled 1950 DXA SCAN [code = DXA [facility] Test 00:00:00 SCAN] [facility] Future Scheduled [address] [facility] 00:00:00 malignant neoplasm Medical C enter of colon (procedure) [code = 154180087] Future Scheduled [address] [facility] 00:00:00 malignant neoplasm Medical C enter of colon (procedure) [code = 708430586] Future Scheduled 1950 Sigmoidoscopy [code [facility] Test 00:00:00 = Sigmoidoscopy] Medical [facility] Future Scheduled [address] [facility] 00:00:00 malignant neoplasm Medical C enter of breast (procedure) [code = 706132375] Future Scheduled [address] [facility] 00:00:00 (combo) [code = CT Medical C enter Colonography (combo)] Future Scheduled [address] [facility] 00:00:00 malignant neoplasm Medical C enter of colon (procedure) [code = 207512440] Future Scheduled [address] [facility] 00:00:00 malignant neoplasm Medical C enter of colon (procedure) [code = 088217634] Future Scheduled 1950 DXA SCAN [code = DXA [facility] Test 00:00:00 SCAN] [facility] Future Scheduled [address] [facility] 00:00:00 malignant neoplasm Medical C enter of colon (procedure) [code = 749957161] Future Scheduled [address] [facility] 00:00:00 malignant neoplasm Medical C enter of colon (procedure) [code = 446968618] Future Scheduled 1950 Sigmoidoscopy [code [facility] Test 00:00:00 = Sigmoidoscopy] [facility] Future Scheduled [address] [facility] 00:00:00 malignant neoplasm Medical C enter of breast (procedure) [code = 557474203] Future Scheduled [address] [facility] 00:00:00 (combo) [code = CT Medical C enter Colonography (combo)] Future Scheduled [address] [facility] 00:00:00 malignant neoplasm Medical C enter of colon (procedure) [code = 614499889] Future Scheduled [address] [facility] 00:00:00 malignant neoplasm Medical C enter of colon (procedure) [code = 278648809] Future Scheduled 1950 DXA SCAN [code = DXA [facility] Test 00:00:00 SCAN] [facility] Future Scheduled [address] [facility] 00:00:00 malignant neoplasm Medical C enter of colon (procedure) [code = 628420845] Future Scheduled [address] [facility] 00:00:00 malignant neoplasm Medical C enter of colon (procedure) [code = 471079618] Future Scheduled 1950 Sigmoidoscopy [code [facility] Test 00:00:00 = Sigmoidoscopy] [facility] Future Scheduled [address] [facility] 00:00:00 malignant neoplasm Medical C enter of colon (procedure) [code = 514003539] Future Scheduled [address] [facility] 00:00:00 malignant neoplasm Medical C enter of colon (procedure) [code = 485964616] Future Scheduled 1950 DXA SCAN [code = DXA [facility] Test 00:00:00 SCAN] [facility] Future Scheduled [address] [facility] 00:00:00 malignant neoplasm Medical C enter of colon (procedure) [code = 218143282] Future Scheduled [address] [facility] 00:00:00 malignant neoplasm Medical C enter of colon (procedure) [code = 861386365] Future Scheduled 1950 Sigmoidoscopy [code [facility] Test 00:00:00 = Sigmoidoscopy] Medical [facility] Future Scheduled [address] [facility] 00:00:00 malignant neoplasm Medical C enter of breast (procedure) [code = 873943090] Future Scheduled [address] [facility] 00:00:00 (combo) [code = CT Medical C enter Colonography (combo)] Future Scheduled COLON CANCER [facility] Test SCREENING: of Medicine COLONOSCOPY [code = COLON CANCER SCREENING: COLONOSCOPY] Future Scheduled MAMMOGRAM ANNUAL [facility] Test [code = MAMMOGRAM of Medicin e ANNUAL] Future Scheduled TETANUS SHOT (ADULT) [facility] Test [code = TETANUS SHOT of Medi cine (ADULT)] Future Scheduled BMI FOLLOW UP PLAN [facility] [place] Test [code = BMI FOLLOW of Medici ne UP PLAN] Future Scheduled HEPATITIS C [facility] [employer] Test SCREENING [code = of Medicin e HEPATITIS C SCREENING] Future Scheduled ZOSTER VACCINE (1 of [employer] Test 2) [code = ZOSTER of Medicin e VACCINE (1 of 2)] Future Scheduled OSTEOPOROSIS [facility] Test SCREENING [code = of Medicin e OSTEOPOROSIS SCREENING] Future Scheduled PNEUMOVAX >=65 [facility] Test (PPSV23) [code = of Medicine PNEUMOVAX >=65 (PPSV23)] Future Scheduled MEDICARE IPPE [facility] Col [facility]ge Test (WELCOME TO of Medicine MEDICARE) [code = MEDICARE IPPE (WELCOME TO MEDICARE)] Future Scheduled FALL SCREEN [code = [facility] [place] Test FALL SCREEN] of Medicine Future Scheduled COLON CANCER [facility] [employer] Test SCREENING: of Medicine COLONOSCOPY [code = COLON CANCER SCREENING: COLONOSCOPY] Future Scheduled MAMMOGRAM ANNUAL [facility] Test [code = MAMMOGRAM of Medicin e ANNUAL] Future Scheduled TETANUS SHOT (ADULT) [employer] Test [code = TETANUS SHOT of Medi cine (ADULT)] Future Scheduled HEPATITIS C [facility] [employer] Test SCREENING [code = of Medicin e HEPATITIS C SCREENING] Future Scheduled ZOSTER VACCINE (1 of [employer] Test 2) [code = ZOSTER of Medicin e VACCINE (1 of 2)] Future Scheduled OSTEOPOROSIS [facility] [employer] Test SCREENING [code = of Medicin e OSTEOPOROSIS SCREENING] Future Scheduled PNEUMOVAX >=65 [facility] Test (PPSV23) [code = of Medicine PNEUMOVAX >=65 (PPSV23)] Future Scheduled MEDICARE IPPE [employer] Test (WELCOME TO of Medicine MEDICARE) [code = MEDICARE IPPE (WELCOME TO MEDICARE)] Future Scheduled FALL SCREEN [code = [employer] Test FALL SCREEN] of Medicine Future Scheduled BMI FOLLOW UP PLAN [employer] Test [code = BMI FOLLOW of Medici ne UP PLAN] Future Scheduled COLON CANCER [facility] Test SCREENING: of Medicine COLONOSCOPY [code = COLON CANCER SCREENING: COLONOSCOPY] Future Scheduled MAMMOGRAM ANNUAL [facility] Test [code = MAMMOGRAM of Medicin e ANNUAL] Future Scheduled TETANUS SHOT (ADULT) [employer] Test [code = TETANUS SHOT of Medi cine (ADULT)] Future Scheduled HEPATITIS C [facility] [employer] Test SCREENING [code = of Medicin e HEPATITIS C SCREENING] Future Scheduled ZOSTER VACCINE (1 of [employer] Test 2) [code = ZOSTER of Medicin e VACCINE (1 of 2)] Future Scheduled OSTEOPOROSIS [facility] Test SCREENING [code = of Medicin e OSTEOPOROSIS SCREENING] Future Scheduled PNEUMOVAX >=65 [facility] Test (PPSV23) [code = of Medicine PNEUMOVAX >=65 (PPSV23)] Future Scheduled MEDICARE IPPE [facility] Test (WELCOME TO of Medicine MEDICARE) [code = MEDICARE IPPE (WELCOME TO MEDICARE)] Future Scheduled BMI FOLLOW UP PLAN [employer] Test [code = BMI FOLLOW of Medici ne UP PLAN] Future Scheduled FALL SCREEN [code = [employer] Test FALL SCREEN] of Medicine Future Scheduled COLON CANCER [facility] Test SCREENING: of Medicine COLONOSCOPY [code = COLON CANCER SCREENING: COLONOSCOPY] Future Scheduled COVID-19 Vaccine [facility] Test Evaluation [code = of Medici ne COVID-19 Vaccine Evaluation] Future Scheduled MAMMOGRAM ANNUAL [facility] Test [code = MAMMOGRAM of Medicin e ANNUAL] Future Scheduled TETANUS SHOT (ADULT) [employer] Test [code = TETANUS SHOT of Medi cine (ADULT)] Future Scheduled HEPATITIS C [facility] [employer] Test SCREENING [code = of Medicin e HEPATITIS C SCREENING] Future Scheduled ZOSTER VACCINE (1 of [employer] Test 2) [code = ZOSTER of Medicin e VACCINE (1 of 2)] Future Scheduled OSTEOPOROSIS [facility] Test SCREENING [code = of Medicin e OSTEOPOROSIS SCREENING] Future Scheduled PNEUMOVAX >=65 [facility] Test (PPSV23) [code = of Medicine PNEUMOVAX >=65 (PPSV23)] Future Scheduled MEDICARE IPPE [employer] Test (WELCOME TO of Medicine MEDICARE) [code = MEDICARE IPPE (WELCOME TO MEDICARE)] Future Scheduled BMI FOLLOW UP PLAN [facility] Test [code = BMI FOLLOW of Medici ne UP PLAN] Future Scheduled FALL SCREEN [code = [facility] [place] Test FALL SCREEN] of Medicine Future Scheduled Screening for [facility] Col [facility]ge Test malignant neoplasm of Medici ne of colon (procedure) [code = 072401813] Future Scheduled Screening for [employer] [facility] Test malignant neoplasm of Medici ne of breast (procedure) [code = 096631679] Future Scheduled TETANUS SHOT (ADULT) [employer] Test [code = TETANUS SHOT of Medi cine (ADULT)] Future Scheduled COVID-19 Vaccine (1) [employer] Test [code = COVID-19 of Medicine Vaccine (1)] Future Scheduled Hepatitis C [facility] Test screening of Medicine (procedure) [code = 915475837] Future Scheduled ZOSTER VACCINE (1 of [employer] Test 2) [code = ZOSTER of Medicin e VACCINE (1 of 2)] Future Scheduled Screening for [employer] [facility] Test osteoporosis of Medicine (procedure) [code = 082674579] Future Scheduled PNEUMOVAX >=65 [employer] Test (PPSV23) [code = of Medicine PNEUMOVAX >=65 (PPSV23)] Future Scheduled MEDICARE IPPE [employer] [facility] Test (WELCOME TO of Medicine MEDICARE) [code = MEDICARE IPPE (WELCOME TO MEDICARE)] Future Scheduled FLU VACCINE > 6 [facility] C [facility]lege Test MONTHS [code = FLU of Medici ne VACCINE > 6 MONTHS] Future Scheduled BMI FOLLOW UP PLAN [employer] Test [code = BMI FOLLOW of Medici ne UP PLAN] Future Scheduled FALL SCREEN [code = [employer] Test FALL SCREEN] of Medicine Future Scheduled COLON CANCER [facility] Test SCREENING: of Medicine COLONOSCOPY [code = COLON CANCER SCREENING: COLONOSCOPY] Future Scheduled MAMMOGRAM ANNUAL [facility] Test [code = MAMMOGRAM of Medicin e ANNUAL] Future Scheduled TETANUS SHOT (ADULT) [employer] Test [code = TETANUS SHOT of Medi cine (ADULT)] Future Scheduled BMI FOLLOW UP PLAN [employer] Test [code = BMI FOLLOW of Medici ne UP PLAN] Future Scheduled HEPATITIS C [facility] [employer] Test SCREENING [code = of Medicin e HEPATITIS C SCREENING] Future Scheduled ZOSTER VACCINE (1 of [employer] Test 2) [code = ZOSTER of Medicin e VACCINE (1 of 2)] Future Scheduled FALL SCREEN [code = [employer] Test FALL SCREEN] of Medicine Future Scheduled OSTEOPOROSIS [facility] Test SCREENING [code = of Medicin e OSTEOPOROSIS SCREENING] Future Scheduled PNEUMOVAX >=65 [facility] Test (PPSV23) [code = of Medicine PNEUMOVAX >=65 (PPSV23)] Future Scheduled MEDICARE IPPE [facility] Test (WELCOME TO of Medicine MEDICARE) [code = MEDICARE IPPE (WELCOME TO MEDICARE)] Future Scheduled XR SHOULDER LEFT 1 Occurrences [facility] Test (COMPLETE) [code = [place] [address]] 08/27/2020 until 08/27/2021 Encounters Start End Encounter Admission Attending Care Care Encounter Source Date/Time Date/Time Type Type Clinicians Facility Department ID 2021-08-05 Inpatient ER [facility] [id number] [facility] 07:29:07 Joo NIXON 2021-12-02 2021-12-02 Office IFTIKHAR Trotter [id number] [facility] 11:00:00 11:00:29 Visit Edward AMBULATOR 350.1.13.21 College Y 0.2.7.2.686 of [id number] Medi angelica 800 e 2021-08-26 2021-08-26 Office Sergo, BCM 1.2.840.114 [id number] [facility] 10:00:55 14:01:56 Visit Edward AMBULATOR 350.1.13.21 College Y 0.2.7.2.686 of [id number] [facility] angelica 800 e 2021-07-23 2021-07-23 Office Sergo, BCM [id number] [facility] 09:18:54 10:24:39 Visit Edward AMBULATOR 350.1.13.21 College Y 0.2.7.2.686 of [id number] [facility] angelica 800 e 2021-05-14 2021-05-14 Office Sergo, BCM [id number] [facility] 08:50:54 10:14:00 Visit Edward AMBULATOR 350.1.13.21 College Y 0.2.7.2.686 of [id number] [facility] angelica 800 e 2021-05-14 2021-05-14 Outpatient EL SERGO, [facility] [id number] [facility] 00:00:00 00:00:00 EDWARD 2021-02-04 2021-02-04 Office Sergo, BCM [id number] [facility] 09:55:37 10:39:43 Visit Edward AMBULATOR 350.1.13.21 College Y 0.2.7.2.686 of [id number] [facility] angelica 800 e 2020-12-24 2020-12-24 Office Sergo, BCM 1.2.840.[id number] [place] [address] 11:05:34 11:38:36 Visit Edward AMBULATOR 350.1.13.21 College Y 0.2.7.2.686 of [id number] [facility] angelica 800 e 2020-10-20 2020-10-20 Office Sergo, BCM 1.2.840.114 [id number] [facility] 10:19:37 11:50:35 Visit Edward AMBULATOR 350.1.13.21 College Y 0.2.7.2.686 of [id number] [facility] angelica 800 e 2020-09-15 2020-09-15 Office Rothman, BCM 1.2.840.114 [id number] [facility] 09:32:03 10:02:03 Visit Nazario Moisés. AMBULATOR 350.1.13.21 College Y 0.2.7.2.686 of [id number] Medi angelica 300 e 2020-09-03 2020-09-03 Office Panda BC 1.2.840.114 [id number] [facility] 13:44:32 16:21:03 Visit López Kisha AMBULATOR 350.1.13.21 College Y 0.2.7.2.686 of [id number] Medi angelica 600 e 2020-08-27 2020-08-27 Office Sergo, [facility] 1.2.840.114 [id number] [facility] 09:10:25 11:55:27 Visit Edsameera AMBULATOR 350.1.13.21 College Y 0.2.7.2.686 of [id number] Medi angelica 800 e 2020-08-27 2020-08-27 Outpatient ANNAMARIA TROTTER, [facility] [id number] [address] [place] [address] 00:00:00 00:00:00 EDSAMEERA Results Test Description Test Time Test Comments Results Result [facility] e Comments RAD, FOREARM, 2 2021-05-14 COMMENTS:Left VIEWS, LEFT 12:10:00 hand, wrist and elbowReason for Exam:->[facility] 1950 Sex: F *FINAL REPORT RAD, FOREARM, 2 VIEWS, LEFT CLINICAL INDICATION: LEft arm pain COMPARISON: None FINDINGS: AP and lateral radiographs of the left forearm were submitted for interpretation. Radial and ulnar shafts are intact. The superficial soft tissues are unremarkable. IMPRESSION: No acute or traumatic abnormality of the left forearm. Signed: JR Martinez Robert MDReport Verified Date/Time: 05/14/2021 12:10:57 Reading Location: [facility] Radiology Reading Room , SHOULDER, 2020-08-27 Left sideReason COMPLETE (MIN 2 12:23:00 for VIEWS), LEFT Exam:->chronic left shoulder [facility] 1950 Sex: F *FINAL REPORT Exam: Left shoulder two views History: Shoulder pain Comparison: None. Findings: The humeral head is fixed in internal rotation with inferior subluxation. Mildly displaced fracture of the greater tuberosity. No additional fracture visualized. Impression: Subacute mildly displaced fracture of the greater tuberosity. Inferior subluxation of the humeral head may be reflective of laxity or effusion Signed: Nic Kelley Verified Date/Time: 08/27/2020 12:23:44 Reading Location: [facility] Reading Room 1 - B01.627 C METABOLIC PANEL 2020-07-23 04:33:00 Test Item Value Reference Range Interpretation Comme nts SODIUM (BEAKER) (test code 142 meq/L 136-145 = 381) POTASSIUM (BEAKER) (test 4.3 meq/L 3.5-5.1 Spe cimen slightly code = 379) hemolyzed CHLORIDE (BEAKER) (test 107 meq/L 98-107 code = 382) CO2 (BEAKER) (test code = 26 meq/L 22-29 355) BLOOD UREA NITROGEN 12 mg/dL 7-21 (BEAKER) (test code = 354) CREATININE (BEAKER) (test 0.77 mg/dL 0.57-1.25 Sp ecimen slightly code = 358) hemolyzed GLUCOSE RANDOM (BEAKER) 90 mg/dL 70-105 (test code = 652) CALCIUM (BEAKER) (test code 9.2 mg/dL 8.4-10.2 = 697) EGFR (BEAKER) (test code = 74 mL/min/1.73 sq m ESTIMATED GFR IS NOT 1092) ACCURATE CRE ATININE CLEARANCE IN NC EDICTING GLOMERULAR FILT RATION RATE. ESTIMATED GFR IS NOT APPLICABLE FOR DIALYSIS PATIENTS. Medical Editor VALERI DONOVAN WCBC W/PLT COUNT & AUTO [id number] 04:11:00 Test Item Value Reference Range Interpretation Comments WHITE BLOOD CELL COUNT (BEAKER) 5.7 K/ L 3.5-10.5 (test code = 775) RED BLOOD CELL COUNT (BEAKER) 4.35 M/ L 3.93-5.22 (test code = 761) HEMOGLOBIN (BEAKER) (test code = 13.0 GM/DL 11.2-15.7 410) HEMATOCRIT (BEAKER) (test code = 40.4 % 34.1-44.9 411) MEAN CORPUSCULAR VOLUME (BEAKER) 92.9 fL 79.4-94.8 (test code = 753) MEAN CORPUSCULAR HEMOGLOBIN 29.9 pg 25.6-32.2 (BEAKER) (test code = 751) MEAN CORPUSCULAR HEMOGLOBIN CONC 32.2 GM/DL 32.2-35.5 (BEAKER) (test code = 752) RED CELL DISTRIBUTION WIDTH 13.9 % 11.7-14.4 (BEAKER) (test code = 412) PLATELET COUNT (BEAKER) (test 244 K/CU MM 150-450 code = 756) MEAN PLATELET VOLUME (BEAKER) 10.8 fL 9.4-12.3 (test code = 754) NUCLEATED RED BLOOD CELLS 0 /100 WBC 0-0 (BEAKER) (test code = 413) NEUTROPHILS RELATIVE PERCENT 59 % (BEAKER) (test code = 429) LYMPHOCYTES RELATIVE PERCENT 30 % (BEAKER) (test code = 430) MONOCYTES RELATIVE PERCENT 8 % (BEAKER) (test code = 431) EOSINOPHILS RELATIVE PERCENT 1 % (BEAKER) (test code = 432) BASOPHILS RELATIVE PERCENT 1 % (BEAKER) (test code = 437) NEUTROPHILS ABSOLUTE COUNT 3.36 K/ L 1.56-6.13 (BEAKER) (test code = 670) LYMPHOCYTES ABSOLUTE COUNT 1.73 K/ L 1.18-3.74 (BEAKER) (test code = 414) MONOCYTES ABSOLUTE COUNT (BEAKER) 0.48 K/ L 0.24-0.36 H (test code = 415) EOSINOPHILS ABSOLUTE COUNT 0.04 K/ L 0.04-0.36 (BEAKER) (test code = 416) BASOPHILS ABSOLUTE COUNT (BEAKER) 0.05 K/ L 0.01-0.08 (test code = 417) IMMATURE GRANULOCYTES-RELATIVE 1 % 0-1 PERCENT (BEAKER) (test code = 2801) BASIC METABOLIC [id number] 06:33:00 Test Item Value Reference Range Interpretation Comments SODIUM (BEAKER) 141 meq/L 136-145 (test code = 381) POTASSIUM (BEAKER) 3.9 meq/L 3.5-5.1 (test code = 379) CHLORIDE (BEAKER) 103 meq/L 98-107 (test code = 382) CO2 (BEAKER) (test 29 meq/L 22-29 code = 355) BLOOD UREA NITROGEN 8 mg/dL 7-21 (BEAKER) (test code = 354) CREATININE (BEAKER) 0.72 mg/dL 0.57-1.25 (test code = 358) GLUCOSE RANDOM 107 mg/dL 70-105 H (BEAKER) (test code = 652) CALCIUM (BEAKER) 9.6 mg/dL 8.4-10.2 (test code = 697) EGFR (BEAKER) (test 80 mL/min/1.73 ESTIMA RICHARD GFR IS code = 1092) sq m NOT ACCURATE CREATININE CLEARANCE IN PREDICTING GLOMERULAR FILTRATION RATE . ESTIMATED GFR I S NOT APPLICABLE FOR DIALYSIS PATIEN TS. Medical Editor ID - EDASICBC W/PLT COUNT & AUTO [id number] 06:02:00 Test Item Value Reference Range Interpretation Comments WHITE BLOOD CELL COUNT (BEAKER) 5.6 K/ L 3.5-10.5 (test code = 775) RED BLOOD CELL COUNT (BEAKER) 4.65 M/ L 3.93-5.22 (test code = 761) HEMOGLOBIN (BEAKER) (test code = 13.4 GM/DL 11.2-15.7 410) HEMATOCRIT (BEAKER) (test code = 42.8 % 34.1-44.9 411) MEAN CORPUSCULAR VOLUME (BEAKER) 92.0 fL 79.4-94.8 (test code = 753) MEAN CORPUSCULAR HEMOGLOBIN 28.8 pg 25.6-32.2 (BEAKER) (test code = 751) MEAN CORPUSCULAR HEMOGLOBIN CONC 31.3 GM/DL 32.2-35.5 L (BEAKER) (test code = 752) RED CELL DISTRIBUTION WIDTH 13.8 % 11.7-14.4 (BEAKER) (test code = 412) PLATELET COUNT (BEAKER) (test 244 K/CU MM 150-450 code = 756) MEAN PLATELET VOLUME (BEAKER) 10.7 fL 9.4-12.3 (test code = 754) NUCLEATED RED BLOOD CELLS 0 /100 WBC 0-0 (BEAKER) (test code = 413) NEUTROPHILS RELATIVE PERCENT 61 % (BEAKER) (test code = 429) LYMPHOCYTES RELATIVE PERCENT 30 % (BEAKER) (test code = 430) MONOCYTES RELATIVE PERCENT 7 % (BEAKER) (test code = 431) EOSINOPHILS RELATIVE PERCENT 1 % (BEAKER) (test code = 432) BASOPHILS RELATIVE PERCENT 1 % (BEAKER) (test code = 437) NEUTROPHILS ABSOLUTE COUNT 3.39 K/ L 1.56-6.13 (BEAKER) (test code = 670) LYMPHOCYTES ABSOLUTE COUNT 1.70 K/ L 1.18-3.74 (BEAKER) (test code = 414) MONOCYTES ABSOLUTE COUNT (BEAKER) 0.40 K/ L 0.24-0.36 H (test code = 415) EOSINOPHILS ABSOLUTE COUNT 0.05 K/ L 0.04-0.36 (BEAKER) (test code = 416) BASOPHILS ABSOLUTE COUNT (BEAKER) 0.03 K/ L 0.01-0.08 (test code = 417) IMMATURE GRANULOCYTES-RELATIVE 1 % 0-1 PERCENT (BEAKER) (test code = 2801) CT, EXTREMITY, UPPER, WITHOUT CONTRAST, [id number] 09:25:00Greater tuberocity fracture on LUnlisted Reason for Exam - Click Yes and Enter Reason Below->NoPlease specify:->HumerusPlease specify:->ShoulderFINAL REPORT CT of the left humerus without contrast History: Fracture, humerusComparisons: No prior Technique: CT of the left humerus was performed without contrast. Axial imageswere generated as were multiplanar reformatted images in the coronal and sagittal planes. This exam was performed according to our departmental dose optimization program which includes automated exposure control, adjustment of the mA and/or kV according to patient's size and/or use of iterative reconstructive technique. Findings: There is a comminuted fracture of the left humeral greater tuberosity without significant bony displacement. The glenoid appears intact. Mild AC joint DJD is noted. There is trace left shoulder joint effusion, and mild degree of periarticular soft tissue edema, increasing edema in the left axillary region. No hematoma or drainable fluid collection is identified. Muscle bulk in the left arm is normal. No joint effusion is seen at the elbow. Partially imaged left thorax, and left abdomen appear unremarkable. IMPRESSION: Comminuted left humeral greater tuberosity fracture.Signed: Hussain Dial MDReport Verified Date/Time: 07/21/2020 09:25:09 Reading Location: [address] Ortho Consult Reading Room MR, EXTREMITY, UPPER, WITHOUT 2020-07-21 08:51:00Brachial plexusUnlisted Reason for Exam - Click Yes and Enter Reason Below->NoDeos the patient have an implanted electronic device?->No FINAL REPORT MRI left brachial plexus with and without contrast. INDICATION: Upper arm trauma, initial exam COMPARISON: No priors TECHNIQUE: Multiplanar multisequence MRI examination of the left brachial plexus was performed with and without intravenous gadolinium. FINDINGS: Mild edema is noted along the left brachial plexus in the axillary region. No mass effect is seen. There is degenerative change in the cervical spine, please refer to concurrently performed cervical spine MRI for discussion. There is a comminuted fracture of the left greater tuberosity, and prominent soft tissue edema is seen around the left shoulder, including edema in the rotator cuff, pectoralis, and deltoid muscles. Trace shoulder joint effusion. No mass lesion is identified. IMPRESSION: Comminuted fracture of the left greater tuberosity, with periarticular soft tissue edema including edema in the left axillary region surrounding the brachial plexus. Signed: Hussain Dial MDReport Verified Date/Time: 07/21/2020 08:51:49 Reading Location: [address] Ortho Consult Reading Room VITAMIN B12 AND [id number] 07:26:00 Test Item Value Reference Range Interpretation Comments VITAMIN B12 (BEAKER) (test code = 899 pg/mL 213-816 H 774) FOLATE (BEAKER) (test code = 362) 11.00 ng/mL >=7.00 Medical Editor ID - [id number] METABOLIC [id number] 06:56:00 Test Item Value Reference Range Interpretation Comments SODIUM (BEAKER) 140 meq/L 136-145 (test code = 381) POTASSIUM (BEAKER) 3.4 meq/L 3.5-5.1 L (test code = 379) CHLORIDE (BEAKER) 106 meq/L 98-107 (test code = 382) CO2 (BEAKER) (test 27 meq/L 22-29 code = 355) BLOOD UREA NITROGEN 10 mg/dL 7-21 (BEAKER) (test code = 354) CREATININE (BEAKER) 0.62 mg/dL 0.57-1.25 (test code = 358) GLUCOSE RANDOM 105 mg/dL 70-105 (BEAKER) (test code = 652) CALCIUM (BEAKER) 8.9 mg/dL 8.4-10.2 (test code = 697) EGFR (BEAKER) (test 95 mL/min/1.73 ESTIMA RICHARD GFR IS code = 1092) sq m NOT ACCURATE CREATININE CLEARANCE IN PREDICTING GLOMERULAR FILTRATION RATE . ESTIMATED GFR I S NOT APPLICABLE FOR DIALYSIS PATIEN TS. Medical Editor ID - EDASICBC W/PLT COUNT & AUTO [id number] 06:19:00 Test Item Value Reference Range Interpretation Comments WHITE BLOOD CELL COUNT (BEAKER) 5.0 K/ L 3.5-10.5 (test code = 775) RED BLOOD CELL COUNT (BEAKER) 4.34 M/ L 3.93-5.22 (test code = 761) HEMOGLOBIN (BEAKER) (test code = 12.5 GM/DL 11.2-15.7 410) HEMATOCRIT (BEAKER) (test code = 39.5 % 34.1-44.9 411) MEAN CORPUSCULAR VOLUME (BEAKER) 91.0 fL 79.4-94.8 (test code = 753) MEAN CORPUSCULAR HEMOGLOBIN 28.8 pg 25.6-32.2 (BEAKER) (test code = 751) MEAN CORPUSCULAR HEMOGLOBIN CONC 31.6 GM/DL 32.2-35.5 L (BEAKER) (test code = 752) RED CELL DISTRIBUTION WIDTH 13.5 % 11.7-14.4 (BEAKER) (test code = 412) PLATELET COUNT (BEAKER) (test 205 K/CU MM 150-450 code = 756) MEAN PLATELET VOLUME (BEAKER) 10.8 fL 9.4-12.3 (test code = 754) NUCLEATED RED BLOOD CELLS 0 /100 WBC 0-0 (BEAKER) (test code = 413) NEUTROPHILS RELATIVE PERCENT 64 % (BEAKER) (test code = 429) LYMPHOCYTES RELATIVE PERCENT 28 % (BEAKER) (test code = 430) MONOCYTES RELATIVE PERCENT 7 % (BEAKER) (test code = 431) EOSINOPHILS RELATIVE PERCENT 1 % (BEAKER) (test code = 432) BASOPHILS RELATIVE PERCENT 0 % (BEAKER) (test code = 437) NEUTROPHILS ABSOLUTE COUNT 3.21 K/ L 1.56-6.13 (BEAKER) (test code = 670) LYMPHOCYTES ABSOLUTE COUNT 1.38 K/ L 1.18-3.74 (BEAKER) (test code = 414) MONOCYTES ABSOLUTE COUNT (BEAKER) 0.34 K/ L 0.24-0.36 (test code = 415) EOSINOPHILS ABSOLUTE COUNT 0.05 K/ L 0.04-0.36 (BEAKER) (test code = 416) BASOPHILS ABSOLUTE COUNT (BEAKER) 0.02 K/ L 0.01-0.08 (test code = 417) IMMATURE GRANULOCYTES-RELATIVE 0 % 0-1 PERCENT (BEAKER) (test code = 2801) BASIC METABOLIC [id number] 07:07:00 Test Item Value Reference Range Interpretation Comments SODIUM (BEAKER) 140 meq/L 136-145 (test code = 381) POTASSIUM (BEAKER) 3.7 meq/L 3.5-5.1 (test code = 379) CHLORIDE (BEAKER) 108 meq/L 98-107 H (test code = 382) CO2 (BEAKER) (test 25 meq/L 22-29 code = 355) BLOOD UREA NITROGEN 11 mg/dL 7-21 (BEAKER) (test code = 354) CREATININE (BEAKER) 0.73 mg/dL 0.57-1.25 (test code = 358) GLUCOSE RANDOM 102 mg/dL 70-105 (BEAKER) (test code = 652) CALCIUM (BEAKER) 9.2 mg/dL 8.4-10.2 (test code = 697) EGFR (BEAKER) (test 79 mL/min/1.73 ESTIMA RICHARD GFR IS code = 1092) sq m NOT ACCURATE CREATININE CLEARANCE IN PREDICTING GLOMERULAR FILTRATION RATE . ESTIMATED GFR I S NOT APPLICABLE FOR DIALYSIS PATIEN TS. Medical Editor ID - EDASICBC W/PLT COUNT & AUTO [id number] 06:29:00 Test Item Value Reference Range Interpretation Comments WHITE BLOOD CELL COUNT (BEAKER) 5.2 K/ L 3.5-10.5 (test code = 775) RED BLOOD CELL COUNT (BEAKER) 4.17 M/ L 3.93-5.22 (test code = 761) HEMOGLOBIN (BEAKER) (test code = 12.1 GM/DL 11.2-15.7 410) HEMATOCRIT (BEAKER) (test code = 38.7 % 34.1-44.9 411) MEAN CORPUSCULAR VOLUME (BEAKER) 92.8 fL 79.4-94.8 (test code = 753) MEAN CORPUSCULAR HEMOGLOBIN 29.0 pg 25.6-32.2 (BEAKER) (test code = 751) MEAN CORPUSCULAR HEMOGLOBIN CONC 31.3 GM/DL 32.2-35.5 L (BEAKER) (test code = 752) RED CELL DISTRIBUTION WIDTH 13.6 % 11.7-14.4 (BEAKER) (test code = 412) PLATELET COUNT (BEAKER) (test 192 K/CU MM 150-450 code = 756) MEAN PLATELET VOLUME (BEAKER) 10.6 fL 9.4-12.3 (test code = 754) NUCLEATED RED BLOOD CELLS 0 /100 WBC 0-0 (BEAKER) (test code = 413) NEUTROPHILS RELATIVE PERCENT 56 % (BEAKER) (test code = 429) LYMPHOCYTES RELATIVE PERCENT 34 % (BEAKER) (test code = 430) MONOCYTES RELATIVE PERCENT 9 % (BEAKER) (test code = 431) EOSINOPHILS RELATIVE PERCENT 1 % (BEAKER) (test code = 432) BASOPHILS RELATIVE PERCENT 0 % (BEAKER) (test code = 437) NEUTROPHILS ABSOLUTE COUNT 2.93 K/ L 1.56-6.13 (BEAKER) (test code = 670) LYMPHOCYTES ABSOLUTE COUNT 1.76 K/ L 1.18-3.74 (BEAKER) (test code = 414) MONOCYTES ABSOLUTE COUNT (BEAKER) 0.45 K/ L 0.24-0.36 H (test code = 415) EOSINOPHILS ABSOLUTE COUNT 0.05 K/ L 0.04-0.36 (BEAKER) (test code = 416) BASOPHILS ABSOLUTE COUNT (BEAKER) 0.02 K/ L 0.01-0.08 (test code = 417) IMMATURE GRANULOCYTES-RELATIVE 0 % 0-1 PERCENT (BEAKER) (test code = 2801) MR, SPINE, CERVICAL, [id number] 20:53:00Unlisted Reason for Exam - Click Yes and Enter Reason Below->NoDeos the patient have an implantedelectronic device?->NoFINAL REPORT EXAM: MR, SPINE, CERVICAL, WITH \T\ WITHOUT CONTRAST CLINICAL INDICATION: Neck pain, recent trauma. TECHNIQUE: Pre-contrast sagittal T1-, T2-, and T2-w fat-saturated, and axial T1-w and T2-w images of the cervical spine. Post-contrast axial T1-w and sagittal T1-w fat-s aturated images. Intravenous contrast material was administered for the examination. COMPARISON: None. FINDINGS: Alignment: No acute malalignment. There is straightening and slight reversal of cervicallordosis centered at C5-C6. Vertebral Bodies: No acute fracture. Marrow Signal: No suspicious lesions or marrow edema. Intervertebral Discs: Moderate multilevel degenerative disc disease with height loss worst at C5-C6. Spinal Cord: Normal in signal intensity. Included Intracranial Structures: Normal Paraspinal Soft Tissues: There is loss of normal flow void of the left vertebral artery. Individual Le vels: C1-C2: Moderate degenerative changes of the mid atlantoaxial joint. C2-C3: No disc bulge. Moderate bilateral facet arthropathy. No spinal canal or foraminal stenosis. C3-C4: No disc bulge. There is moderate to advanced bilateral facet arthropathy, worse on the right. No spinal canal stenosis. There is severe foraminal stenosis on the right and mild left foraminal stenosis. C4- C5: There is a trace posterior disc bulge and advanced bilateral facet arthropathy, worse on the right. No spinal canalstenosis. There is severe right foraminal stenosis and mild left foraminal stenosis. C5-C6: Moderatedisc osteophyte complex and bilateral moderate facet arthropathy. This results in mild spinal canal stenosis with preservation of CSF signal and severe bilateral foraminal stenosis. C6-C7: Small disc osteophyte complex and mild bilateral facet arthropathy. No spinal canal stenosis. There is severe left greater than right foraminal stenosis. C7-T1: Mild bilateral facet arthropathy, worse on the left. No spinal canal or foraminal stenosis. Abnormal Enhancement: None IMPRESSION: 1. No acute osseous abnormality on MRI of the cervical spine. 2. Multilevel degenerative changes, as described, notable for multilevel severe foraminal stenosis including on the right at C3-C4, on the right at C4-C5, and bilaterally at C5-C6. 3. 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 However, given history of trauma, consider further evaluation with CTA of the neck to exclude vertebral artery injury. The findings were discussed with patient's nurse on 07/19/2020at the time of dictation who will relay them to the physician. Signed: Edil Cline MDReport Verified Date/Time: 07/19/2020 20:53:10 BASI METABOLIC [id number] 07:41:00 Test Item Value Reference Range Interpretation Comments SODIUM (BEAKER) 141 meq/L 136-145 (test code = 381) POTASSIUM (BEAKER) 4.0 meq/L 3.5-5.1 (test code = 379) CHLORIDE (BEAKER) 108 meq/L 98-107 H (test code = 382) CO2 (BEAKER) (test 25 meq/L 22-29 code = 355) BLOOD UREA NITROGEN 9 mg/dL 7-21 (BEAKER) (test code = 354) CREATININE (BEAKER) 0.72 mg/dL 0.57-1.25 (test code = 358) GLUCOSE RANDOM 107 mg/dL 70-105 H (BEAKER) (test code = 652) CALCIUM (BEAKER) 9.3 mg/dL 8.4-10.2 (test code = 697) EGFR (BEAKER) (test 80 mL/min/1.73 ESTIMA RICHARD GFR IS code = 1092) sq m NOT ACCURATE CREATININE CLEARANCE IN PREDICTING GLOMERULAR FILTRATION RATE . ESTIMATED GFR I S NOT APPLICABLE FOR DIALYSIS PATIEN TS. Medical Editor ID - NENITA MCBC W/PLT COUNT & AUTO [id number] 06:53:00 Test Item Value Reference Range Interpretation Comments WHITE BLOOD CELL COUNT (BEAKER) 6.2 K/ L 3.5-10.5 (test code = 775) RED BLOOD CELL COUNT (BEAKER) 4.40 M/ L 3.93-5.22 (test code = 761) HEMOGLOBIN (BEAKER) (test code = 12.9 GM/DL 11.2-15.7 410) HEMATOCRIT (BEAKER) (test code = 40.9 % 34.1-44.9 411) MEAN CORPUSCULAR VOLUME (BEAKER) 93.0 fL 79.4-94.8 (test code = 753) MEAN CORPUSCULAR HEMOGLOBIN 29.3 pg 25.6-32.2 (BEAKER) (test code = 751) MEAN CORPUSCULAR HEMOGLOBIN CONC 31.5 GM/DL 32.2-35.5 L (BEAKER) (test code = 752) RED CELL DISTRIBUTION WIDTH 13.9 % 11.7-14.4 (BEAKER) (test code = 412) PLATELET COUNT (BEAKER) (test 212 K/CU MM 150-450 code = 756) MEAN PLATELET VOLUME (BEAKER) 10.6 fL 9.4-12.3 (test code = 754) NUCLEATED RED BLOOD CELLS 0 /100 WBC 0-0 (BEAKER) (test code = 413) NEUTROPHILS RELATIVE PERCENT 73 % (BEAKER) (test code = 429) LYMPHOCYTES RELATIVE PERCENT 20 % (BEAKER) (test code = 430) MONOCYTES RELATIVE PERCENT 6 % (BEAKER) (test code = 431) EOSINOPHILS RELATIVE PERCENT 1 % (BEAKER) (test code = 432) BASOPHILS RELATIVE PERCENT 1 % (BEAKER) (test code = 437) NEUTROPHILS ABSOLUTE COUNT 4.53 K/ L 1.56-6.13 (BEAKER) (test code = 670) LYMPHOCYTES ABSOLUTE COUNT 1.22 K/ L 1.18-3.74 (BEAKER) (test code = 414) MONOCYTES ABSOLUTE COUNT (BEAKER) 0.39 K/ L 0.24-0.36 H (test code = 415) EOSINOPHILS ABSOLUTE COUNT 0.04 K/ L 0.04-0.36 (BEAKER) (test code = 416) BASOPHILS ABSOLUTE COUNT (BEAKER) 0.03 K/ L 0.01-0.08 (test code = 417) IMMATURE GRANULOCYTES-RELATIVE 1 % 0-1 PERCENT (BEAKER) (test code = 2801) CT, SPINE, CERVICAL, WO [id number] 17:16:00Concern for brachial plexus injury on the LUnlisted Reason for Exam - Click Yes and Enter Reason Belo w->NoFINAL REPORT EXAM: CERVICAL SPINE CT WITHOUT CONTRAST CLINICAL INDICATION: Cervical radiculopathy COMPARISON: None TECHNIQUE: Axially oriented 2.5 mm thick images were obtained through the entire cervical spine, without contrast. Sagittal and coronal reformations are also providedin osseous and soft tissue algorithms. DOSE REDUCTION: Dose modulation, iterative reconstruction, and/or weight-based adjustment of the mA/kV was utilized to reduce the radiation dose to as low as reasonably achievable. FINDINGS:Alignment of the cervical spine is within normal limits. Vertebral body height is maintained.Mild multilevel disc space height loss, most conspicuous at C5-C6No acute findings within the paraspinal soft tissues. Findings by level:C2/C3: Mild posterior disc osteophyte complex. No significant canal or foraminal stenosis.C3/C4: Mild posterior disc osteophyte complex, asymmetric to the right. Mild left/severe right foraminal stenosis. No significant spinal canal narrowing.C4/C5: Broad-based posterior disc osteotic complex, asymmetric to the right. No significant spinal canal narrowing. Severe right foraminal stenosis.C5/C6: Broad-based posterior disc osteophyte complex and bilateral facet arthropathy and hypertrophy. Mild/moderate spinal canal narrowing. Moderate/severe bilateral foraminal stenosis.C6/C7: Broad-based disc osteophyte complex. Bilateral facet arthropathy andhypertrophy. Moderate bilateral foraminal stenosis.C7/T1: No significant canal or foraminal stenosis. IMPRESSION: Multilevel degenerative changes as detailed above Signed: Theresa Carpenter MDReport Verified Date/Time: 07/18/2020 17:16:35 Reading Location: [address] Neuro Reading Room SARS-COV2/RT-PCR ([facility])2020-07-18 10:00:00 Test Item Value Reference Range Interpretation Comments SARS-COV2/RT-PCR (test Negative Not Detected, Negative, code = 3129289) See external report for linked test SARS-COV-2 PERFORMING LAB [facility] (test code = 9149813) Negative result for this test determines that SARS-CoV-2 RNA was not present in the specimen above the Limit of Detection (LOD). However, Negative results do not preclude SARS-CoV-2 infection and should not be used as the sole basis for treatment or patient management decisions. Negative results must be combined with clinical observations, patient history, and epidemiological information. A false negative result may occur if a specimen is improperly collected, transported or handled. A false negative result should be considered if patient's recent exposures or clinical presentation indicate that COVID-19 (SARS-CoV-2) is likely and diagnostic tests for other causes of illness are negative. Re-testing should be considered in cases of suspected false negatives.The limit of detection for this assay is 800 copies/mL.This SARS CoV-2 test is a real-time RT-PCR test intended for the qualitative detection of nucleic acid from SARS-CoV-2 in a nasopharyngeal swab specimen collected from individuals suspected of COVID-19 by their healthcare provider.This test has not been Food and Drug Administration (FDA) cleared or approved. This is a modified version of an approved Emergency Use Authorization (EUA) and is in the process of review by the FDA. Once authorized by the FDA, the issued EUA will be effective until the declaration that circumstances exist justifying the authorization of the emergency use ofin vitro diagnostic tests for detection and/or diagnosis of COVID-19 is terminated under Section 564(b)(2) of the Act or the EUA is revoked under Section 564(g) of the Act.Fact Sheet for Healthcare Prov iders:https://www.[employer]/sites/default/files/product/documents/Fact_Sheet_HC _Udhudsooa_Hvuc_YOTQ-RgB-3.pdfFact Sheet for Healthcare Patients:https://www.[employer]/sites/default/files/product/docume nts/Jqks_Gmuep_Nbqywohc_Gtnx_AJRJ-GxT-1.pdfPerforming Laboratory:[facility].[place], [place] [address]BCMTD METABOLIC PANEL 2020-07-18 06:40:00 Test Item Value Reference Range Interpretation Comments SODIUM (BEAKER) 142 meq/L 136-145 (test code = 381) POTASSIUM (BEAKER) 4.1 meq/L 3.5-5.1 (test code = 379) CHLORIDE (BEAKER) 109 meq/L 98-107 H (test code = 382) CO2 (BEAKER) (test 25 meq/L 22-29 code = 355) BLOOD UREA NITROGEN 9 mg/dL 7-21 (BEAKER) (test code = 354) CREATININE (BEAKER) 0.78 mg/dL 0.57-1.25 (test code = 358) GLUCOSE RANDOM 103 mg/dL 70-105 (BEAKER) (test code = 652) CALCIUM (BEAKER) 8.9 mg/dL 8.4-10.2 (test code = 697) EGFR (BEAKER) (test 73 mL/min/1.73 ESTIMA RICHARD GFR IS code = 1092) sq m NOT ACCURATE CREATININE CLEARANCE IN PREDICTING GLOMERULAR FILTRATION RATE . ESTIMATED GFR I S NOT APPLICABLE FOR DIALYSIS PATIEN TS. Medical Editor ID - PIAYA LCBC W/PLT COUNT & AUTO [id number] 06:12:00 Test Item Value Reference Range Interpretation Comments WHITE BLOOD CELL COUNT (BEAKER) 7.6 K/ L 3.5-10.5 (test code = 775) RED BLOOD CELL COUNT (BEAKER) 4.40 M/ L 3.93-5.22 (test code = 761) HEMOGLOBIN (BEAKER) (test code = 12.7 GM/DL 11.2-15.7 410) HEMATOCRIT (BEAKER) (test code = 40.3 % 34.1-44.9 411) MEAN CORPUSCULAR VOLUME (BEAKER) 91.6 fL 79.4-94.8 (test code = 753) MEAN CORPUSCULAR HEMOGLOBIN 28.9 pg 25.6-32.2 (BEAKER) (test code = 751) MEAN CORPUSCULAR HEMOGLOBIN CONC 31.5 GM/DL 32.2-35.5 L (BEAKER) (test code = 752) RED CELL DISTRIBUTION WIDTH 13.7 % 11.7-14.4 (BEAKER) (test code = 412) PLATELET COUNT (BEAKER) (test 229 K/CU MM 150-450 code = 756) MEAN PLATELET VOLUME (BEAKER) 11.0 fL 9.4-12.3 (test code = 754) NUCLEATED RED BLOOD CELLS 0 /100 WBC 0-0 (BEAKER) (test code = 413) NEUTROPHILS RELATIVE PERCENT 75 % (BEAKER) (test code = 429) LYMPHOCYTES RELATIVE PERCENT 18 % (BEAKER) (test code = 430) MONOCYTES RELATIVE PERCENT 6 % (BEAKER) (test code = 431) EOSINOPHILS RELATIVE PERCENT 0 % (BEAKER) (test code = 432) BASOPHILS RELATIVE PERCENT 0 % (BEAKER) (test code = 437) NEUTROPHILS ABSOLUTE COUNT 5.76 K/ L 1.56-6.13 (BEAKER) (test code = 670) LYMPHOCYTES ABSOLUTE COUNT 1.35 K/ L 1.18-3.74 (BEAKER) (test code = 414) MONOCYTES ABSOLUTE COUNT (BEAKER) 0.46 K/ L 0.24-0.36 H (test code = 415) EOSINOPHILS ABSOLUTE COUNT 0.01 K/ L 0.04-0.36 L (BEAKER) (test code = 416) BASOPHILS ABSOLUTE COUNT (BEAKER) 0.03 K/ L 0.01-0.08 (test code = 417) IMMATURE GRANULOCYTES-RELATIVE 0 % 0-1 PERCENT (BEAKER) (test code = 2801)
--- NOTE | 2022-11-22 13:04 | RAD REPORT ---
EXAM DESCRIPTION: CT - Head Brain Wo Cont - 11/22/2022 12:53 pm CLINICAL HISTORY: syncope COMPARISON: No comparisons TECHNIQUE: Axial 5 mm thick images of the head were obtained without IV contrast. All CT scans are performed using dose optimization technique as appropriate and may include automated exposure control or mA/KV adjustment according to patient size. FINDINGS: No intracranial hemorrhage, mass, edema or shift of mid-line structures. No acute infarcti on changes seen. No abnormal extra-axial fluid collections. Minimal atrophy changes are present with ventricles in proportion. Chronic ischemic change. The very minimal. Mastoid air cells and visualized portions of the paranasal sinuses are clear. No acute bony findings. IMPRESSION: Negative non-contrast CT head examination for acute finding.
--- NOTE | 2022-11-22 13:42 | RAD REPORT ---
EXAM DESCRIPTION: RAD - Chest Single View - 11/22/2022 1:28 pm CLINICAL HISTORY: syncope COMPARISON: None TECHNIQUE: AP portable chest image was obtained 11/22/2022 1:28 pm . FINDINGS: No peripheral mass or consolidation. No failure or volume overload findings. Interstitial markings are mildly prominent suspected to be the patient's baseline interstitial pattern. In the abs ence comparison, a very minimal interstitial edema or infiltrate would be possible. Heart and vasculature are normal. No measurable pleural effusion and no pneumothorax. No acute bony abnormality seen. No acute aortic findings suspected. IMPRESSION: No no focal acute cardiopulmonary process. Mildly prominent interstitial pattern is suspected to be baseline. However, as a baseline study, a mi nimal interstitial edema or infiltrate cannot be excluded.
[2022-11-22 14:53] LABS: Absolute Lymphocytes (CBC) 1.5 K/uL (0.7-4.9); Hematocrit 36.1 % (36.0-45.0); Lymphocytes % 23.4 % (15.3-44.8); MCV 87.8 fL (80-100); MPV 9.8 fL (7.6-11.3); RBC Red Blood Cell Count 4.12 M/uL (3.86-4.86)
[2022-11-22 14:57] LABS: Protime INR 1.03
[2022-11-22 15:12] LABS: Albumin 3.9 g/dL (3.4-5.0); Bilirubin Direct 0.1 mg/dL (0-0.2); Bilirubin Total 0.4 mg/dL (0.2-1.0); Magnesium 2.4 mg/dL (1.6-2.4); Potassium 4.2 mmol/L (3.5-5.1); Protein, Total 7.4 g/dL (6.4-8.2); Troponin High Sensitivity 5.9 pg/mL (<58.9)
--- NOTE | 2022-11-22 16:01 | ER ---
Nurse's Notes [facility] Name: Charlotte Barrientos Age: 72 yrs Sex: Female : 1950 Arrival Date: 11/22/2022 Time: 11:43 Bed 17 Private MD: Dayday Botello T Diagnosis: Syncope;Dizziness Presentation: 11/22 12:04 Chief complaint: Patient states: Passed out on 11/05 \T\ 11/06. Pt was recommended by Dr. kim Botello to come to ER for further evaluation as she is still very dizzy. Pt has been on a GOLO diet and is concerned that this may be contributing to her symptoms. Coronavirus screen: Client denies travel out of the [place] in the last 14 days. Ebola Screen: Patient denies exposure to infectious person. Patient denies travel to an Ebola-affected area in the 21 days before illness onset. Initial Sepsis Screen: Does the patient meet any 2 criteria? No. Patient's initial sepsis screen is negative. Does the patient have a suspected source of infection? No. Patient's initial sepsis screen is negative. Risk Assessment: Do you want to hurt yourself or someone else? Patient reports no desire to harm self or others. Onset of symptoms was November 05, 2022. 12:04 Method Of Arrival: Ambulatory 12:04 Acuity: SHIRA 3 ss Triage Assessment: 12:44 General: Appears in no apparent distress. uncomfortable, obese, well groomed, well jh5 developed, well nourished, Behavior is calm, cooperative, appropriate for age. Historical: - Allergies: 12:08 No Known Allergies; ss - PMHx: 12:08 neuropathy; 12:44 Hypercholesterolemia; Hypertensive disorder; 5 - Immunization history:: Adult Immunizations up to date. - Social history:: Smoking status: Patient denies any tobacco usage or history of. Screenin:43 [facility] ED Fall Risk Assessment (Adult) History of falling in the last 3 months, [facility] including since admission Yes- fall prone (multiple falls) (3 pts) Confusion or Disorientation No (0 pts) Intoxicated or Sedated No (0 pts) Impaired Gait No (0 pts) Mobility Assist Device Used No (0 pt) Altered Elimination No (0 pt) Score/Fall Risk Level 3 or more points = High Risk. Abuse screen: Denies threats or abuse. Denies injuries from another. Nutritional screening: No deficits noted. Tuberculosis screening: No symptoms or risk factors identified. Assessment: 12:42 Reassessment: Pt gets dizzy moving from supine to sitting, sitting to standing. Pt has jh5 to stabilize herself on the copywriter when standing during orthostatics. Pain: Denies pain. Vital Signs: 12:04 Pulse 65; Resp 16; Temp 98.2(TE); Pulse Ox 99% on R/A; Weight 84.37 kg; Height 5 ft. 3 ss in. (160.02 cm); Pain 3/10; 12:36 BP 136 / 61 Supine; Pulse 58; jh5 12:36 BP 125 / 55 Sitting; Pulse 74; jh5 12:36 BP 117 / 61 Standing; Pulse 68; jh5 15:38 BP 121 / 64; Pulse 72; Resp 16; Pulse Ox 99% ; jh5 15:57 BP 141 / 68; Pulse 68; Resp 16; Pulse Ox 99% ; jh5 12:04 Body Mass Index 32.95 (84.37 kg, 160.02 cm) ED Course: 11:43 Patient arrived in ED. rg4 11:43 Dayday Botello MD is Private Physician. rg4 12:08 Triage completed. ss 12:08 Arm band placed on left wrist. ss 12:11 Ashwin Noguera DO is Attending Physician. ms3 12:43 Patient has correct armband on for positive identification. Bed in low position. Call 5 light in reach. Side rails up X2. 12:43 No provider procedures requiring assistance completed. jh5 12:55 CT Head Brain wo Cont In Process Unspecified. EDMS 13:30 Chest Single View XRAY In Process Unspecified. EDMS 14:42 Lab(s) recollected, by me, sent to lab. em1 15:58 Dayday Botello MD is Referral Physician. ms3 15:58 Jose Shane MD is Referral Physician. ms3 16:11 IV discontinued, intact, bleeding controlled, No redness/swelling at site. Pressure jh5 dressing applied. Administered Medications: No medications were administered Medication: 12:44 VIS not applicable for this client. jh5 Outcome: 15:58 Condition: good jh5 16:00 Discharge ordered by . ms3 16:11 Discharged to home ambulatory. jh5 16:11 Discharge instructions given to patient, Instructed on discharge instructions, follow up and referral plans. medication usage, safety practices, Demonstrated understanding of instructions, follow-up care, medications. 16:12 Patient left the ED. 5 Signatures: Dispatcher [employer] G[place] Xiao em1 Sue Verde, RN RN Annette Shirley rg4 Ashwin Noguera DO DO ms3 Aggie Kimball RN RN jh5
--- NOTE | 2022-11-22 16:01 | EDPHYS ---
Physician Documentation [facility] Name: Charlotte Barrientos Age: 72 yrs Sex: Female : 1950 Arrival Date: 11/22/2022 Time: 11:43 Bed 17 Private MD: Dayday Botello T ED Physician Ashwin Noguera HPI: 11/22 13:26 This 72 yrs old Female presents to ER via Ambulatory with complaints of Weakness, ms3 Dizziness, Passed Out November 06. 13:26 72-year-old female with past medical history of neuropathy, hypercholesterolemia, ms3 hypertension presents for dizziness that has been ongoing for 2 months. Patient also endorses syncope on November 05 and November 06. Patient denies pain at this time. Patient does endorse dizziness that is continuing. Patient denies nausea, vomiting. . Historical: - Allergies: 12:08 No Known Allergies; ss - PMHx: 12:08 neuropathy; ss 12:44 Hypercholesterolemia; Hypertensive disorder; jh5 - Immunization history:: Adult Immunizations up to date. - Social history:: Smoking status: Patient denies any tobacco usage or history of. ROS: 13:26 Constitutional: Negative for fever, and chills. Neck: Negative for injury, pain, and ms3 swelling. 13:26 Skin: Negative for injury, rash, and discoloration, Neuro: Negative for headache, weakness, numbness, tingling. 13:26 Cardiovascular: Positive for chest pain. 13:26 Respiratory: Positive for cough, shortness of breath. 13:26 All other systems are negative. Exam: 13:26 Constitutional: This is a well developed, well nourished patient who is awake, alert, ms3 and in no acute distress. Head/Face: Normocephalic, atraumatic. Chest/axilla: Normal chest wall appearance and motion. Nontender with no deformity. Cardiovascular: Regular rate and rhythm with a normal S1 and S2. No gallops, murmurs, or rubs. Normal PMI, no JVD. No pulse deficits. Respiratory: Lungs have equal breath sounds bilaterally, clear to auscultation and percussion. No rales, rhonchi or wheezes noted. No increased work of breathing, no retractions or nasal flaring. Abdomen/GI: Soft, non-tender, with normal bowel sounds. No distension or tympany. No guarding or rebound. No evidence of tenderness throughout. Skin: Warm, dry with normal turgor. Normal color with no rashes, no lesions, and no evidence of cellulitis. MS/ Extremity: Pulses equal, no cyanosis. Neurovascular intact. Full, normal range of motion. 13:26 ECG was reviewed by the Attending Physician. Vital Signs: 12:04 Pulse 65; Resp 16; Temp 98.2(TE); Pulse Ox 99% on R/A; Weight 84.37 kg; Height 5 ft. 3 ss in. (160.02 cm); Pain 3/10; 12:36 BP 136 / 61 Supine; Pulse 58; jh5 12:36 BP 125 / 55 Sitting; Pulse 74; jh5 12:36 BP 117 / 61 Standing; Pulse 68; jh5 15:38 BP 121 / 64; Pulse 72; Resp 16; Pulse Ox 99% ; jh5 15:57 BP 141 / 68; Pulse 68; Resp 16; Pulse Ox 99% ; jh5 12:04 Body Mass Index 32.95 (84.37 kg, 160.02 cm) ss MDM: 12:31 Patient medically screened. ms3 16:00 Data reviewed: vital signs, nurses notes, lab test result(s), EKG, and as a result, I ms3 will discharge patient. Consideration of Admission/Observation Escalation of care including admission/observation considered. No emergent medical condition necessitating admission found at this time. 16:00 Independent interpretation of the following test(s) in the Emergency Department EKG: ms3 See my EKG interpretation above surveillance system monitor: rate is 66 beats/min, Rhythm is normal sinus rhythm, with no ectopy, Interpretation: normal rate, normal rhythm. Counseling: I had a detailed discussion with the patient and/or guardian regarding: the historical points, exam findings, and any diagnostic results supporting the discharge/admit diagnosis, lab results, radiology results, the need for outpatient follow up, to return to the emergency department if symptoms worsen or persist or if there are any questions or concerns that arise at home. ED course: Discussed labs and imaging with patient. Patient to follow-up with her primary care physician in 2 to 3 days. Patient understands and agrees with plan. All questions were answered. Return precautions discussed include worsening symptoms, or any other concerns. On reevaluation patient is alert and orient x4, no apparent distress, nontoxic, speaking full sentences. 11/22 12:32 Order name: Basic Metabolic Panel; Complete Time: 15:26 ms3 11/22 12:32 Order name: CBC with Diff; Complete Time: 15:10 ms3 11/22 12:32 Order name: Hepatic Function; Complete Time: 15:26 ms3 11/22 12:32 Order name: Magnesium; Complete Time: 15:26 ms3 11/22 12:32 Order name: Protime (+inr); Complete Time: 15:10 ms3 11/22 12:32 Order name: Ptt, Activated; Complete Time: 15:10 ms3 11/22 12:32 Order name: Troponin High Sensitivity; Complete Time: 15:26 ms3 11/22 12:32 Order name: CT Head Brain wo Cont; Complete Time: 13:43 ms3 11/22 12:32 Order name: Chest Single View XRAY; Complete Time: 13:43 ms3 11/22 12:32 Order name: EKG; Complete Time: 12:33 3 11/22 12:32 Order name: Cardiac monitoring; Complete Time: 12:36 3 11/22 12:32 Order name: EKG - Nurse/Tech; Complete Time: 12:36 3 11/22 12:32 Order name: IV Saline Lock; Complete Time: 13:54 ms3 11/22 12:32 Order name: Labs collected and sent; Complete Time: 13:54 3 11/22 12:32 Order name: NPO; Complete Time: 12:36 3 11/22 12:32 Order name: O2 Per Protocol; Complete Time: 12:36 3 11/22 12:32 Order name: O2 Sat Monitoring; Complete Time: 12:36 3 11/22 12:32 Order name: Urine Dipstick-Ancillary (obtain specimen); Complete Time: 13:49 ms3 11/22 13:39 Order name: Labs - recollect needed: recollect all tubes; Complete Time: 14:42 bd EC:26 Rate is 58 beats/min. Rhythm is regular. QRS [place] is Normal. [place] interval is normal. QRS ms3 interval is normal. Clinical impression: Sinus bradycardia. Interpreted by me. Reviewed by me. Administered Medications: No medications were administered Disposition Summary: 11/22/22 16:00 Discharge Ordered Location: Home ms3 Condition: Stable ms3 Diagnosis - Syncope ms3 - Dizziness ms3 Followup: ms3 - With: Dayday Botello MD - When: 2 - 3 days - Reason: Recheck today's complaints Followup: ms3 - With: Jose Shane MD - When: 2 - 3 days - Reason: Recheck today's complaints Followup: ms3 - With: Private Physician - When: 2 - 3 days - Reason: Recheck today's complaints Discharge Instructions: - Discharge Summary Sheet ms3 - Syncope ms3 - Dizziness, [id number] ms3 Forms: - Medication Reconciliation Form ms3 - Thank You Letter ms3 - Antibiotic Education ms3 - Prescription Opioid Use ms3 Signatures: Dispatcher [employer] EDMS Geovanna Chowdhury Shelby, RN RN ss Ashwin Noguera, DO ms3 Aggie Kimball RN RN jh5 Corrections: (The following items were deleted from the chart) 19:51 19:49 Data reviewed: vital signs, nurses notes, lab test result(s), EKG, ms3 ms3 19:51 19:49 Consideration of Admission/Observation Escalation of care including ms3 admission/observation considered. No emergent medical condition necessitating admission found at this time. ms3
[2022-11-22 17:05] VITALS: TEMP 98.2; O2SAT 99
[2022-11-22 17:10] VITALS: BP 141/68
--- NOTE | 2022-11-23 12:29 | EKG ---
Test Date: 2022-11-22 Test Time: 12:23:37 Call Circuit Worker: MEASUREMENT RESULTS: Intervals: Rate: 58 WA: 160 QRSD: 94 QT: 420 QTc: 412 Peck: P: 55 WA: 160 QRS: 39 T: 41 INTERPRETIVE STATEMENTS: Sinus bradycardia Otherwise normal ECG Compared to ECG 07/17/2020 12:46:40 Sinus rhythm no longer present Atrial abnormality no longer present Myocardial infarct finding no longer present Electronically Signed On 11-23-22 12:25:27 FITNESS MANAGEMENT DIRECTOR by Artie Bird
== END 2022-11-22 16:12 | disposition home or self-care (01) ==
LOC: ER 11:37
DX: R55 Syncope and collapse (principal); R42 Dizziness and giddiness; I10 Essential (primary) hypertension; E78.00 Pure hypercholesterolemia, unspecified
CPT/HCPCS: 36415; 70450; 71045; 80048; 80076; 83735; 84484; 85025; 85610; 85730; 93005; 99283